=== PATIENT | female | born 1995 | race African-American/Black ===

== ENCOUNTER 2023-05-12 08:46 | Emergency (ER) | payer MEDICAID, SELFPAY ==
[2023-05-12 08:58] VITALS: BP 145/90; PULSE 66; RESP 18; TEMP 36.4; O2SAT 100; BMI 42.1
--- NOTE | 2023-05-12 09:22 | ED_ITS ---
HPI - General Adult General Chief complaint: Upper Respiratory Symptoms Stated complaint: Headache, cough, vomiting Time Seen by Provider: 05/12/23 09:04 Source: patient Mode of arrival: ambulatory Limitations: no limitations History of Present Illness HPI narrative: Patient is 27-year-old female presenting to the emergency department with complaint of cough and headache since yesterday. Reports one episode of v omiting yesterday. Has been able to tolerate PO today. She denies fevers, ear pain, sore throat. Denies any abdominal pain or diarrhea. States daughter is sick with similar symptoms. Has not used any viuj-pen-dnotwmu medications. MD complaint: cough Onset (ago): day(s) Relieving factors: none Exacerbating factors: none Associated symptoms: cough, headaches and nausea/vomiting Treatments prior to arrival: none Related Data Previous Rx's Medication Instructions Recorded benzonatate 100 mg capsule 100 mg PO TID PRN cough #20 caps 05/12/23 Allergies Allergy/AdvReac Type Severity Reaction Status Date / Time No Known Allergies Allergy Verified 05/12/23 08:58 Review of Systems Review of Systems: As per HPI. Yes all other systems are reviewed and are negative Constitutional: Constitutional: Reports as per HPI [facility] Social History Social History Advance Directives: No Physical Exam ED Vital Signs: Vital Signs - 24 hr 05/12/23 08:58 Temperature 97.5 F Pulse Rate 66 Respiratory Rate 18 Blood Pressure 145/90 H Pulse Oximetry 100 Oxygen Delivery Method Room Air BMI result Body Mass Index 42.1 Vital signs have been reviewed and appear to be correct. Blood pressure mildly elevated. Heart rate normal. Respiratory rate normal. Temperature normal. Oxygen saturation normal. Const General: cooperative, healthy appearing and no acute distress Orientation/consciousness: oriented to person, oriented to place, oriented to time and patient oriented x3 Limitations: no limitations HENMT Head: Yes normocephalic and Yes atraumatic Ears: external ears normal, TM's normal bilaterally and EAC's normal General nose exam: Normal external nose present Face and sinus: Yes face symmetric Mouth: oropharynx normal and moist mucous membranes Throat: Yes posterior oropharynx normal, Yes tonsils normal, Yes uvula midline and No uvular edema Eyes Pupils: Equal, round and reactive pupils present Neck Neck: Yes normal visual inspection and Yes supple Resp Effort & Inspection: normal respiratory effort and able to speak in complete sentences Auscultation: clear to auscultation bilaterally Cardio Rate: regular rate Rhythm: regular rhythm Heart sounds: S1 normal heart sound present and S2 normal heart sound present GI Palpation (GI): Soft to palpation and nontender Auscultation: normoactive bowel sounds General: Yes no CVA tenderness Back/Spine/Pelvis Back: no CVA tenderness Skin General skin exam: elasticity normal and turgor normal Neuro General: oriented to person, oriented to place, oriented to time, patient oriented x3, moves all extremities, no focal motor deficits and CN's II-XI intact bilaterally Cranial nerves: Yes Equal, round and reactive pupils present Cognition (Neuro): normal cognition Extrem General: Yes full ROM, Yes no pedal edema and Yes no calf tenderness Psych Mental Status: mental status grossly normal Affect: normal affect Thought process: Normal thought process present Medical Decision Making Medical Decision Making [facility] Narrative: Patient is 27-year-old female presenting to the emergency department with complaint of cough and headache since yesterday. On exam patient is awake, A+Ox3, VS WNL, afebrile, normal neurological exam without focal deficits, physical exam findings as above. Given reported symptoms and physical exam findings, initial differential includes viral illness, COVID, flu. Given symptoms began yesterday do not suspect bronchitis or pneumonia. Swabs for flu and COVID both negative, patient updated on results. Feel symptoms are likely related to viral illness. Will prescribe benzonatate for cough. Advised patient to ensure adequate fluid intake, adequate rest, alternate Tylenol and ibuprofen as needed for headaches. Instructed patient follow-up with primary care provider. Return precautions discussed. Patient verbalized understanding of and agreement with plan. Differential Diagnosis Differential Diagnoses: The differential diagnosis associated with the presentation includes As per MDM. Lab Data [facility] Lab Attestation statement: I reviewed the patient's lab results. As per [facility]. Labs: Lab Results 05/12/23 Range/Units 09:07 COVID-19 (MARY) Negative (Negative) COVID-19 Clin Com See Note Influenza Type A (ANN) Negative (Negative) Influenza Type B (ANN) Negative (Negative) Influenza A & B Note See Note External Record Review External record reviewed: Inpatient record, Office record and Outpatient record Prescription Management I considered prescription management with: Other Discharge Plan Discharge Clinical Impression: Upper respiratory infection Patient Disposition: Home, Self-Care Instructions: Upper Respiratory Infection (DC), Viral Syndrome (ED) Additional Instructions: You were evaluated in the emergency department today for headache and cough. Your Covid and flu tests were negative. Your symptoms are likely related to a viral illness which will resolve on its own with time and rest. You should ensure adequate fluid intake, and can use Tylenol 650 mg or ibuprofen 600 mg every 6 hours as needed for fever or discomfort. You are being prescribed demetra onatate which you can use up to 3 times daily as needed for cough. Please follow-up with your primary care provider this week. Return to the emergency department if you develop chest pain, worsening shortness of breath, difficulty swallowing, fever 100.4? F or greater or any other concerning symptoms. Prescriptions: New benzonatate 100 mg capsule 100 mg PO TID PRN (Reason: cough) Qty: 20 0RF Stand Alone Forms: Work/School Release
[2023-05-12 09:52] LABS: COVID-19 Test Negative (Negative); IDNOW Serial# 08D9AD1C
[2023-05-12 09:53] LABS: IDNOW Serial# BCCEAD1C; Influenza A Negative (Negative); Influenza B2 Negative (Negative)
--- NOTE | 2023-05-12 10:03 | PC.NURSE ---
patient a&ox3, swabs previously obtained, provider to see patient, call fortune within reach, will continue to monitor
[2023-05-12 11:19] VITALS: RESP 16
== END 2023-05-12 11:20 | disposition home or self-care (01) ==
PROVIDERS: Emergency Provider Student in an Organized Health Care Education/Training Program
DX: J06.9 Acute upper respiratory infection, unspecified (principal); R51.9 Headache, unspecified; R05.9 Cough, unspecified; Z11.52 Encounter for screening for COVID-19
CPT/HCPCS: 87502; 87635; 99283; 99284

== ENCOUNTER 2023-08-03 14:05 | Outpatient (REF) | payer MEDICAID, SELFPAY ==
[2023-08-04 11:42] LABS: CT PCR NOT DETECTED (Not Detect.); NG PCR NOT DETECTED (Not Detect.)
[2023-08-04 14:06] LABS: BV Int Neg Control Negative (Negative); BV Int Pos Control Positive (Positive)
== END 2023-08-03 14:06 | disposition home or self-care (01) ==
LOC: HO.LAB 14:05
PROVIDERS: Visit Provider Advanced Practice Midwife
DX: Z01.419 Encounter for gynecological examination (general) (routine) without abnormal findings (principal); N93.9 Abnormal uterine and vaginal bleeding, unspecified; I10 Essential (primary) hypertension; E66.01 Morbid (severe) obesity due to excess calories; Z68.41 Body mass index [BMI] 40.0-44.9, adult; Z20.2 Contact with and (suspected) exposure to infections with a predominantly sexual mode of transmission; Z11.3 Encounter for screening for infections with a predominantly sexual mode of transmission
CPT/HCPCS: 0353U; 87480; 87510; 87660; 88142; 99385

== ENCOUNTER 2023-08-03 14:05 | Outpatient (AMB) | payer MEDICAID, SELFPAY ==
[2023-08-03 14:06] VITALS: BP 122/70; BMI 42.1
--- NOTE | 2023-08-03 14:06 | MHC.OFFVIS ---
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 She said she has had high blood pressure often on since then. She has not been tested for diabetes since the when she tested negative she says both of her parents are diabetic. She has gained weight from being on the [employer] and also life. She works at [employer] she used to eat the food there but no longer. She is sexually active with her partner and she has been open to . She has not been trying to lose weight. She has had times in her life where the bleeding was irregular and she says that at her previous providers in [place] she was checked with an ultrasound and then an endometrial biopsy that said her lining was fine. She has been told before that her weight has something to do with her irregular bleeding this periods started the beginning of July and is just kind of finishing now she took the Nexplanon out because of the weight gain and she was not getting her period at all and also she had no libido now her libido has somewhat improved but she does not get to act on it because of the irregular bleeding as much she last had sex last Tuesday. [facility] Female Reproductive History Menstrual Age of Menarche: 13 Duration of menses: other Date of last menstrual period: 07/08/23 Total pregnancies: 2 Full term: 1 Date of last pap smear: 07/04/21 (per patient''neg'') History of abnormal pap smear: No Physical Exam Vital Signs: Last Vital Signs BP 122/70 08/03/23 14:06 BMI result Body Mass Index 42.1 Const General: healthy appearing, comfortable, no acute distress, well developed and alert Nutritional Appearance: average body habitus and obese Orientation/consciousness: patient oriented x3 Limitations: no limitations HEENT Head: Yes normocephalic Neck Neck: Yes normal visual inspection Thyroid: Thyroid normal Chest Chest palpation & inspection: normal inspection of the chest Breast/axilla inspection: normal inspection of the breasts and normal inspection of the axillae Breast/axilla palpation: normal palpation of the breasts and normal palpation of the axillae Resp Effort & Inspection: normal respiratory effort GI Inspection: Yes normal to inspection, No Abdominal wall edema and No distended Palpation (GI): Soft to palpation and nontender Other: Scant end of menses type blood slight odor noted cervix nulliparous patient tense with exam exam limited by adipose nontender good tone with Kegel. General: Yes bladder normal to palpation External Female Exam: normal external appearance and normal appearance of the urethra Speculum Exam - Vagina: normal appearance of the vagina, normal palpation and normal vaginal discharge Speculum Exam - Cervix: normal appearance of the cervix, normal palpation and nontender Bimanual exam- vagina & uterus: normal bimanual exam, normal palpation, uterine size normal, bladder normal to palpation, consistency normal, normal palpation, uterine mobility normal, uterine shape normal, No Cervical tenderness present, non-tender and no cervical motion tenderness Bimanual Exam- Adnexa, other: normal adnexae, no masses, normal and No adnexal tenderness Neuro General: patient oriented x3 Assessment & Plan Assessment & Plan (1) Encounter for screening examination for sexually transmitted disease: Code(s): Z11.3 - Encounter for screening for infections with a predominantly sexual mode of transmission (2) Women's annual routine gynecological examination: Code(s): Z01.419 - Encounter for gynecological examination (general) (routine) without abnormal findings (3) Abnormal uterine bleeding (AUB): Code(s): N93.9 - Abnormal uterine and vaginal bleeding, unspecified (4) Hypertension: Comment: History of severe preeclampsia has had high blood pressures often on since delivery blood pressure was high at ER visit in May 2023. Code(s): I10 - Essential (primary) hypertension (5) Obesity, morbid, BMI 40.0-49.9: Code(s): E66.01 - Morbid (severe) obesity due to excess calories (6) Family history of diabetes mellitus: Code(s): Z83.3 - Family history of diabetes mellitus Plan -----Discussed in this visit the following: healthy balanced diet, regular and consistent exercise, getting recommended health screens, doing the best she can for her particular health concerns, kegel exercises, pap smear screening and followup recommendations, mammography screening and SBE, normal changes in cycles in her life stage--- . Pap smear was done testing for gonorrhea chlamydia trichomoniasis Gardnerella and yeast was done patient believes she has BV because of the odor offered prescription that she prefers which is the Metrogel with refills that she can use when she is really clear she has symptoms. Will notify her if anything else shows up as well. She wanted testing for blood work for STIs so that testing was offered for HIV hep B hep C and syphilis. Explained that we do not normally test for herpes as most people have been exposed and a positive serologic test does not tell you the site of the infection whether it is oral or genital we only typically test when there has a lesion present. Discussed transmission for safety. She has never had an outbreak she was just curious Discussed her issue of the irregular bleeding that has been going on for some time it is most likely related to the Nexplanon having been in for couple of years but it also could be related to her being overweight and having an irregular bleeding pattern discussed that I would not consider that she would be at high risk for endometrial hyperplasia at this stage of her life because she was on Nexplanon for 2 years and it has been remove for 2 years now so usually that would not occur in that short amount of time however if nothing was done to change the circumstances that are contributing to irregular bleeding for instance her weight, then over time it would not be surprising for her to have issues with that. Discussed the risk Developing these issues and the connection to weight and that losing weight is part of the answer . I did offer her control pills her blood pressure was acceptable today so she could try a course for short 3 months of combination control pills but she would rather be cautious and so I did also offer her progestin only control pills but she would rather work on losing weight and seeing if that makes a difference 1st and have an ultrasound to evaluate the lining of her uterus and we will have a visit after that and she is just going to not take any thing to manage the bleeding at this point in time. She will use condoms for control. I also ordered blood work for STI testing and added in TSH CBC and additionally random blood sugar which will be done fasting and hemoglobin A1c as she is concerned about diabetes and she does not have a PCC. Orders: Orders Hepatitis C Antibody Today Z11.3 - Encounter for screening for infections with a predominantly sexual mode of transmission Syphilis Screen Today Z11.3 - Encounter for screening for infections with a predominantly sexual mode of transmission CT NG by PCR Today Z01.419 - Encounter for gynecological examination (general) (routine) without abnormal findings Pap Smear Today Z01.419 - Encounter for gynecological examination (general) (routine) without abnormal findings Hemoglobin A1c Today E66.01 - Morbid (severe) obesity due to excess calories, I10 - Essential (primary) hypertension, Z83.3 - Family history of diabetes mellitus Glucose Random Today E66.01 - Morbid (severe) obesity due to excess calories, I10 - Essential (primary) hypertension, Z83.3 - Family history of diabetes mellitus Complete Blood Count no Diff Today E66.01 - Morbid (severe) obesity due to excess calories, I10 - Essential (primary) hypertension, Z83.3 - Family history of diabetes mellitus Hepatitis B Surface Antigen Today Z11.3 - Encounter for screening for infections with a predominantly sexual mode of transmission HIV Ab/Ag Today Z11.3 - Encounter for screening for infections with a predominantly sexual mode of transmission Bacterial Vaginosis Panel Today I10 - Essential (primary) hypertension, N93.9 - Abnormal uterine and vaginal bleeding, unspecified, Z01.419 - Encounter for gynecological examination (general) (routine) without abnormal findings, Z11.3 - Encounter for screening for infections with a predominantly sexual mode of transmission, Z20.2 - Contact with and (suspected) exposure to infections with a predominantly sexual mode of transmission US pelvic and transvaginal Today I10 - Essential (primary) hypertension, N93.9 - Abnormal uterine and vaginal bleeding, unspecified, Z01.419 - Encounter for gynecological examination (general) (routine) without abnormal findings, Z11.3 - Encounter for screening for infections with a predominantly sexual mode of transmission Thyroid Stimulating Hormone Today E66.01 - Morbid (severe) obesity due to excess calories, I10 - Essential (primary) hypertension, Z83.3 - Family history of diabetes mellitus Medications: New metronidazole 0.75%(37.5mg/5gram) For use when there is evidence of bacterial vaginosis. 1 appful vaginal BID 5 days 70 grams 2RF Coding Level of Care Code New Pt Prev Care 40-64y(32143) Diagnoses Encounter for screening examination for sexually transmitted disease Z11.3 Women's annual routine gynecological examination Z01.419 Abnormal uterine bleeding (AUB) N93.9 Hypertension I10 Obesity, morbid, BMI 40.0-49.9 E66.01 Family history of diabetes mellitus Z83.3
== END 2023-08-03 15:39 | disposition home or self-care (01) ==
LOC: HO.HWSM 14:06
PROVIDERS: Visit Provider Advanced Practice Midwife
DX: Z11.3 Encounter for screening for infections with a predominantly sexual mode of transmission (principal); Z01.419 Encounter for gynecological examination (general) (routine) without abnormal findings; N93.9 Abnormal uterine and vaginal bleeding, unspecified; I10 Essential (primary) hypertension; E66.01 Morbid (severe) obesity due to excess calories; Z83.3 Family history of diabetes mellitus
CPT/HCPCS: 99385

== ENCOUNTER 2023-08-03 15:58 | Outpatient (REF) | payer MEDICAID, SELFPAY ==
[2023-08-03 17:24] LABS: Hematocrit 35.4 % (37.0-47.0); Hemoglobin 11.9 g/dl (12.0-16.0); Mean Corpuscular HGB Conc 33.6 g/dl (31.0-35.0); Mean Corpuscular Hemoglobin 27.2 pg (27.0-33.0); Platelet Count 228 X10*3/uL (160-400); Red Blood Count 4.37 X10*6/uL (4.20-5.50); Red Cell Distribution Width 15.4 % (11.0-16.0); White Blood Count 8.9 X10*3/uL (4.8-10.8)
[2023-08-03 17:33] LABS: Estimated Average Glucose 108 mg/dL; Hemoglobin A1c % 5.4 % (<6.0)
[2023-08-03 17:34] LABS: Glucose Random 94 mg/dL (60-115)
[2023-08-03 17:55] LABS: Thyroid Stimulating Hormone 4.29 uIU/mL (0.32-4.0)
[2023-08-04 04:03] LABS: Syphilis Screen Nonreactive (Nonreactive)
[2023-08-04 04:30] LABS: HBsAGNum1 0.35 S/CO (0.00-0.99); HIV AB/AG Nonreactive (Nonreactive); HIV Num 1 0.07 S/CO (0.00-0.99); Hepatitis B Surface Antigen Negative (Negative); ~HepC Num1 0.19 S/CO (0.00-0.79); ~Hepatitis C Antibody Nonreactive (Nonreactive)
== END 2023-08-03 15:59 | disposition home or self-care (01) ==
LOC: HO.HHCL 15:58
PROVIDERS: Visit Provider Advanced Practice Midwife
DX: I10 Essential (primary) hypertension (principal); E66.01 Morbid (severe) obesity due to excess calories; Z11.3 Encounter for screening for infections with a predominantly sexual mode of transmission; Z83.3 Family history of diabetes mellitus
CPT/HCPCS: 0353U; 36415; 82947; 83036; 84443; 85027; 86780; 86803; 87340; 87389; 87480; 87510; 87660; 88142; 99385

== ENCOUNTER 2023-08-17 11:57 | Outpatient (AMB) | payer MEDICAID, SELFPAY ==
--- NOTE | 2023-08-17 11:57 | MHC.OFFVIS ---
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 Attempts a been made to referred to primary care. Patient had said she did not have a primary care provider. A referral has been made to [facility] endocrinology as [facility] endocrinology is close to new patients. I wanted patient to know her test results so that she could be sure to do what ever she could do to follow-up in find a primary care provider. She said that she wanted to have the thyroid level done because of a family history. I reviewed the lab results with her and encouraged her to do what ever she can do proactively to herself find a primary care provider she said she is working on it but it is hard as a lot of places have waiting lists I suggested getting on several waiting list so that she can get the soon as possible appointment and establish care for primary care for everything that she needs to follow-up on. We will be having a visit after her ultrasound to review her ultrasound results the ultrasound did not happen as scheduled this week. [facility] Female Reproductive History Menstrual Age of Menarche: 13 control method: none Results Reviewed Results Reviewed: Name: Harjeet Abraham Age/Sex: 27/F : 1995 Unit#: [id number] Attend Dr: Marybeth Alvarez CNM Re08/03/23 Status: DEP REF Location: [facility] Disch: SPEC : [id number] EUGENE: 08/03/23-160 STATUS: COMP REQ : [id number] RECD: 08/03/23-[address] [facility] [address]: Marybeth Alvarez CNM COMP: 08/03/23-175 ENTERED: 08/03/23-[address] [facility] [address]: ORDERED: Glu Random, TSH Test Result Flag Reference Glucose, Random 94 60-115 mg/dL TSH 3rd Gen. 4.29 H 0.32-4.0 uIU/mL Note: A sustained TSH level above 2.5 uIU/mL may warrant further investigation. TSH 3rd Generation ([facility]) Assessment & Plan Assessment & Plan (1) Elevated TSH: Code(s): R79.89 - Other specified abnormal findings of blood chemistry Plan This is a tele visit to review patient's elevated TSH results. Attempts a been made to referred to primary care. Patient had said she did not have a primary care provider. A referral has been made to [facility] endocrinology as [facility] endocrinology is close to new patients. I wanted patient to know her test results so that she could be sure to do what ever she could do to follow-up in find a primary care provider. She said that she wanted to have the thyroid level done because of a family history. I reviewed the lab results with her and encouraged her to do what ever she can do proactively to herself find a primary care provider she said she is working on it but it is hard as a lot of places have waiting lists I suggested getting on several waiting list so that she can get the soon as possible appointment and establish care for primary care for everything that she needs to follow-up on. We will be having a visit after her ultrasound to review her ultrasound results the ultrasound did not happen as scheduled this week. ([facility] [place] [facility] and also to [facility], case management, however nurse navigator referral did not result in any follow-up, and 15-30 minutes of navigating/calling yielded no results.) Telehealth Telehealth Location of provider rendering services: practice address Location of patient: other (work) Patient Identification confirmed using: Name, : Yes Telehealth method: voice only Patient verbally consented to treatment: Yes Patient verbally consented to billing insurance company: Yes Patient informed of any privacy concerns related to visit: Yes Coding Level of Care Code Tele Est Pt Level 3 (18254) Diagnoses Elevated TSH R79.89 Time Spent (min) 20 Comment 15 min spent reviewing & managing hx and plan/5 speaking w pt.
--- OUTSIDE RECORDS SUMMARY | 2023-08-17 11:58 | XMS_ITS | Continuity of Care Document ---
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 Name Role Phone Not on Staff, PCP Primary Care Physician Unavail able Encounter [facility] Date(s): 06/21/19 - 07/01/[address] [address]- [facility] Attending Physician: Roseanne Martin Admitting Physician: Roseanne Martin Referring Physician: Roseanne Martin Allergies, Adverse Reactions, Alerts Substance Reaction Severity Status NKA Active Immunizations Given and Recorded Vaccine Date Status Refusal Reason influenza virus vaccine, inactivated 1 06/13/19 Gi kanika Hepatitis B Vaccine (old term) 06/12/07 Given Hepatitis B Vaccine (old term) 2 96 Given Hepatitis B Vaccine (old term) 3 96 Given Miscellaneous Vaccine 4 07/12/06 Given Measles/Mumps/Rubella Virus Vaccine 5 02/13/02 Giv en Measles/Mumps/Rubella Virus Vaccine 6 11/29/97 Giv en diphtheria/tetanus/pertussis, acel(DTaP) 7 02/13/02 Given diphtheria/tetanus/pertussis, acel(DTaP) 8 11/29/97 Given diphtheria/tetanus/pertussis, acel(DTaP) 9 06/12/97 Given diphtheria/tetanus/pertussis, acel(DTaP) 10 01/10/97 Given diphtheria/tetanus/pertussis, acel(DTaP) 11 96 Given Poliovirus Vaccine, Inactivated 12 05/15/99 Given Poliovirus Vaccine, Inactivated 13 06/12/97 Given Poliovirus Vaccine, Inactivated 14 01/10/97 Given Poliovirus Vaccine, Inactivated 15 96 Given Varicella Virus Vaccine 16 11/29/97 Given Haemophilus B Conj Vaccine (oldterm) 17 11/29/97 G iven Haemophilus B Conj Vaccine (oldterm) 18 06/12/97 G iven Haemophilus B Conj Vaccine (oldterm) 19 06/12/97 G iven Haemophilus B Conj Vaccine (oldterm) 20 01/10/97 G iven Haemophilus B Conj Vaccine (oldterm) 21 96 G iven 1Early/Late Reason: Wean to Standard Admin Times 2Admin Note: HEP B 3Admin Note: HEP B 4Admin Note: GARDASIL VACCINE/ VIS 03/05/06 5Admin Note: MMR 6Admin Note: MMR 7Admin Note: DTap 8Admin Note: DTap 9Admin Note: DTap 10Admin Note: DTap 11Admin Note: DTap 12Admin Note: OPV 13Admin Note: OPV 14Admin Note: OPV 15Admin Note: OPV 16Admin Note: VARIVAX 17Admin Note: HIB 18Admin Note: HIB 19Admin Note: HIB 20Admin Note: HIB 21Admin Note: HIB Medications Colace sodium 100 mg oral capsule 100 mg, 1, capsule, By Mouth, 2 times a day, PRN, # 50 capsule, Refills 0, Tot. Refills 0, Maintenance, for constipation, 06/15/19 11:40:31 EST, Route to Pharmacy Electronically, [id number], [facility]/pharmacy #[id number], 156, cm, 06/14... Start Date: 06/15/19 Stop Date: 06/25/19 Status: Ordered ferrous sulfate 325 mg oral enteric coated tablet 325 mg, 1, tablet, By Mouth, 2 times a day, # 90 tablet, Refills 0, Tot. Refills 0, Maintenance, 05/11/19 15:05:14 EST, Route to Pharmacy Electronically, [id number], [facility]/pharmacy #[id number] Start Date: 05/11/19 Stop Date: 06/10/19 Status: Ordered labetalol 200 mg oral tablet 1 tablet = 200 mg, By Mouth, 2 times a day, # 60 tablet, 0 Refills, Maintenance, 05/21/19 21:16:51 EST, Tablet Start Date: 05/21/19 Status: Ordered Multivitamin Tablet 0 Refills, Maintenance, 01/20/18 11:31:18 EDT Start Date: 01/20/18 Status: Ordered Social History Social History Type Response Smoking Status Current every day aarti ledesma; Type: Cigars; Other: 2 each day...quit 12-30-17; entered on: 01/20/18 Sex
--- OUTSIDE RECORDS SUMMARY | 2023-08-17 11:58 | XMS_ITS | Continuity of Care Document ---
Author Name Unknown Organization [facility] Address [address] [place] [address]- Care Team Providers Care Patent Prosecution Attorney Name Role Phone Not on Staff, PCP Primary Care Physician Unavail able Encounter [facility] NBR [id number] Date(s): 09/10/19 - 09/10/[address] [address]- [facility] Discharge Disposition: A-D/C Home Attending Physician: Beto Ward MD Admitting Physician: Beto Ward MD Referring Physician: Not on Staff, Referring MD Allergies, Adverse Reactions, Alerts Substance Reaction Severity [...] 20Admin Note: HIB 21Admin Note: HIB Medications Zofran ODT 4 mg oral tablet, disintegrating 1 tablet = 4 mg, By Mouth, Every 8 hours, PRN as needed for nausea/vomiting, # 9 tablet, 0 Refills,Maintenance, 09/10/19 9:45:00 EDT, DIS Tablet, [id number], 156, cm, 09/10/19 7:57:00 EDT, Height, 89.5, kg, 09/10/19 7:57:00 EDT, Dry Weight Start Date: 09/10/19 Status: Ordered Vital Signs Most recent to oldest [Reference Range]: 1 2 Height 156 cm (09/10/19 10:19 AM) 156 cm (09/10/19 7:57 AM) Weight 89.5 kg (09/10/19 10:19 AM) 89.5 kg (09/10/19 7:57 AM) Oxygen Saturation [94-100 %] 100 % (09/10/19 10:19 AM) 100 % (09/10/19 7:57 AM) Pulse Rate [55-90 bpm] 97 bpm *H* (09/10/19 10:19 AM) 98 bpm *H* (09/10/19 7:57 AM) Body Mass Index [18.5-24.99] 36.78 *>HHI* (09/10/19 10:19 AM) Blood Pressure [90-138/55-84 mm Hg] 125/ 75mm Hg (09/10/19 10:19 AM) 127/73mm Hg (09/10/19 7:57 AM) Respiratory Rate [16-30 br/min] 16 br/mi n (09/10/19 10:19 AM) 16 br/min (09/10/19 7:57 AM) Mode of Delivery (Oxygen) Room air (09/10/19 10:19 AM) Room air (09/10/19 7:57 AM) Blood pressure sites Arm, right (09/10/19 7:57 AM) Dry Weight 89.5 kg (09/10/19 10:19 AM) 89.5 kg (09/10/19 7:57 AM) Dry Weight Obtained Via Standing scale (09/10/19 7:57 AM) Social History Social History Type Response Smoking Status Current every day aarti ledesma; Type: Cigars; Other: 2 each day...quit 12-30-17; entered on: 01/20/18 Sex
--- OUTSIDE RECORDS SUMMARY | 2023-08-17 11:58 | XMS_ITS | Continuity of Care Document ---
Author Name Unknown Organization [facility] Address [address] [place] [address]- Care Team Providers Care Veterinary Manager Name Role Phone Not on Staff, PCP Primary Care Physician Unavail able [facility]): [facility] - 09/23/19 [facility] [address] [place] [address]- [facility] Attending Physician: Roseanne Martin Admitting Physician: Roseanne Martin Referring Physician: AdmRoseanne davidson Allergies, Adverse Reactions, Alerts Substance Reaction Severity [...] Dry Weight Start Date: 09/10/19 Status: Ordered Social History Social History Type Response Smoking Status Current every day sm oker; Type: Cigars; Other: 2 each day...quit 12-30-17; entered on: 01/20/18 Sex
--- OUTSIDE RECORDS SUMMARY | 2023-08-17 11:59 | XMS_ITS | Continuity of Care Document ---
Author Name Unknown Organization [facility] ter Address [address] [place] [address]- Care Team Providers Care Door To Door Salesperson Name Role Phone Fior Vergara Primary Care Physician [facility] Date(s): 07/08/21 - 07/08/[address] [address]- Discharge Disposition: A-D/C Walkout Attending Physician: Not on Staff, Attending MD Admitting Physician: Not on Staff, Admitting MD Referring Physician: Not on Staff, Referring [...] 15 96 Given Varicella Virus Vaccine 16 5/29/98 Given Haemophilus B Conj Vaccine (oldterm) 17 [...] HIB 20Admin Note: HIB 21Admin Note: HIB Vital Signs Most recent to oldest [Reference Range]: 1 2 3 Oxygen Saturation [94-100 %] 97 % (07/08/21 4:59 PM) 99 % (07/08/21 3:14 PM) 99 % (07/08/21 1:15 PM) Pulse Rate [55-90 bpm] 95 bpm *H* (07/08/21 4:59 PM) 98 bpm *H* (07/08/21 3:14 PM) 92 bpm *H* (07/08/21 1:15 PM) Blood Pressure [90-138/55-84 mm Hg] 126/76mm Hg (07/08/21 4:59 PM) 141/85mm Hg *H* (07/08/21 3:14 PM) Respiratory Rate [16-30 br/min] 16 br/min (07/08/21 3:14 PM) Temperature [96.8-100.4 DegF] 97.6 DegF (07/08/21 4:59 PM) 98.8 DegF (07/08/21 3:14 PM) Mode of Delivery (Oxygen) Room air (07/08/21 4:59 PM) Room air (07/08/21 3:14 PM) Room air (07/08/21 1:15 PM) Blood pressure sites Arm, right (07/08/21 4:59 PM) Arm, right (07/08/21 3:14 PM) Temperature Route Oral (07/08/21 4:59 PM) Oral (07/08/21 3:14 PM) Social History Social History Type Response Smoking Status Current every day sm oker; Type: Cigars; Other: 2 each day...quit 12-30-17; entered on: 01/20/18 Sex
--- OUTSIDE RECORDS SUMMARY | 2023-08-17 11:59 | XMS_ITS | Continuity of Care Document ---
Author Name Unknown Organization [facility] Address [address] [place] [address]- Care Team Providers Care Corporate Webmaster Name Role Phone Fior Vergara Primary Care Physician [phone] [facility]counter [facility] Date(s): 09/23/21 - 12/31/[address] [address] Attending Physician: Not on Staff, Attending MD Referring Physician: Not on Staff, Referring MD Allergies, Adverse Reactions, Alerts No Known Allergies Immunizations Given and Recorded Vaccine Date Status [...] HIB 20Admin Note: HIB 21Admin Note: HIB Social History Social History Type Response Smoking Status Current every day sm oker; Type: Cigars; Other: 2 each day...quit 12-30-17; entered on: 01/20/18 Sex
--- OUTSIDE RECORDS SUMMARY | 2023-08-17 11:59 | XMS_ITS | Continuity of Care Document ---
Author Name Unknown Organization [facility] Address [address] [place] [address]- Care Team Providers Care Frame And Scrap Crusher Name Role Phone Not on Staff, PCP Primary Care Physician Unavail able [facility] Date(s): 06/11/19 - 06/18/[address] [address]- [facility] Encounter Diagnosis Unspecified maternal hypertension, complicating the puerperium(Final) - Discharge Disposition: A-D/C Home Attending Physician: Not on Staff, Attending MD [...] 06/15/19 11:40:31 EST, Route to Pharmacy Electronically, [id number], [facility]/pharmacy #[id number], 156, cm, 06/14... Start Date: 06/15/19 Stop Date: 06/25/19 Status: Ordered ferrous sulfate 325 mg oral enteric coated tablet 325 mg, 1, tablet, By Mouth, 2 times a day, # 90 tablet, Refills 0, Tot. Refills 0, Maintenance, 05/11/19 15:05:14 EST, Route to Pharmacy Electronically, [id number], [facility]/pharmacy #[id number] Start Date: 05/11/19 Stop Date: 06/10/19 Status: Ordered ibuprofen 800 mg oral tablet 800 mg, 1, tablet, By Mouth, 3 times a day, for 10 days, # 30 tablet, Refills 0, Tot. Refills 0, Acute 06/25/19 11:40:28 EST, 06/15/19 11:40:28 EST, Route to Pharmacy Electronically, [id number], [facility]/pharmacy #[id number], 156, cm, 1... Start Date: 06/15/19 Stop Date: 06/25/19 Status: Ordered labetalol 200 mg oral tablet 1 tablet = 200 mg, By Mouth, 2 times a day, # 60 tablet, 0 Refills, Maintenance, 05/21/19 21:16:51 EST, Tablet Start Date: 05/21/19 Status: Ordered Multivitamin Tablet 0 Refills, Maintenance, 01/20/18 11:31:18 EDT Start Date: 01/20/18 Status: Ordered simethicone 125 mg oral tablet 1 tablet = 125 mg, By Mouth, 3 times a day after meals, PRN for gas, for 10 days, # 30 tablet, 0 Refills, Acute 06/25/19 11:40:38 EST, 06/15/19 11:40:38 EST, Tablet, 156, cm, 06/14/19 23:22:29 EST, Height, 88.9, kg, 06/11/19 20:40:17 EST, Dry Weight Start Date: 06/15/19 Stop Date: 06/25/19 Status: Ordered Tylenol 325 mg oral capsule 2 capsule = 650 mg, By Mouth, Every 4 hours, PRN as needed for pain, for 10 days, # 60 capsule, 0 Refills, Acute 06/25/19 11:40:21 EST, 06/15/19 11:40:21 EST, Capsule, 156, cm, 06/14/19 23:22:29 EST,Height, 88.9, kg, 06/11/19 20:40:17 EST, Dry Weight Start Date: 06/15/19 Stop Date: 06/25/19 Status: Ordered Social History Social History Type Response Smoking Status Current every day sm oker; Type: Cigars; Other: 2 each day...quit 06-29-18; entered on: 01/20/18 Sex
--- OUTSIDE RECORDS SUMMARY | 2023-08-17 11:59 | XMS_ITS | Continuity of Care Document ---
Author Name Unknown Organization [facility] Adult Medicine Address [address] [place] [address]- Care Team Providers Care Mud Logger Name Role Phone Not on Staff, PCP Primary Care Physician Unavail able [facility]s): 08/30/19 - 10/13/19 [facility] Adult Medicine [address] [place] [address]- [facility] Attending Physician: Piyush Sigala MD Admitting Physician: Piyush Sigala MD Allergies, Adverse Reactions, Alerts Substance Reaction [...]
--- OUTSIDE RECORDS SUMMARY | 2023-08-17 11:59 | XMS_ITS | Continuity of Care Document ---
Author Name Unknown Organization [facility] ter Address [address] [place] [address]- Care Team Providers Care Drum Tester Name Role Phone Not on Staff, PCP Primary Care Physician Unavail able [facility] Date(s): 06/16/19 - 06/16/[address] [address]- [facility] Discharge Disposition: A-D/C Home Attending Physician: Velma Niño DO Admitting Physician: Velma Niño DO Referring Physician: Velma Niño DO Allergies, Adverse Reactions, Alerts Substance Reaction Severity [...] 06/15/19 11:40:31 EST, Route to Pharmacy Electronically, [id number], [facility]/pharmacy #[id number], 156, cm, 06/14... Start Date: 06/15/19 Stop Date: 06/25/19 Status: Ordered ferrous sulfate 325 mg oral enteric coated tablet 325 mg, 1, tablet, By Mouth, 2 times a day, # 90 tablet, Refills 0, Tot. Refills 0, Maintenance, 05/11/19 15:05:14 EST, Route to Pharmacy Electronically, [id number], [facility]/pharmacy #[id number] Start Date: 05/11/19 Stop Date: 06/10/19 Status: Ordered ibuprofen 800 mg oral tablet 800 mg, 1, tablet, By Mouth, 3 times a day, for 10 days, # 30 tablet, Refills 0, Tot. Refills 0, Acute 06/25/19 11:40:28 EST, 06/15/19 11:40:28 EST, Route to Pharmacy Electronically, [id number], [facility]/pharmacy #[id number], 156, cm, 1... Start Date: 06/15/19 [...] Date: 06/15/19 Stop Date: 06/25/19 Status: Ordered Vital Signs Most recent to oldest [Reference Range]: 1 2 3 Height 155 cm (06/16/19 9:42 AM) Weight 88.6 kg (06/16/19 9:28 AM) Oxygen Saturation [94-100 %] 100 % (06/16/19 9:28 AM) Pulse Rate [55-90 bpm] 84 bpm (06/16/19 9:28 AM) Blood Pressure [90-138/55-84 mm Hg] 141/91mm Hg *H* (06/16/19 2:48 PM) 124/77mm Hg (06/16/19 1:39 PM) 143/94mm Hg *H* (06/16/19 12:39 PM) Respiratory Rate [16-30 br/min] 18 br/min (06/16/19 2:37 PM) 16 br/min (06/16/19 9:28 AM) Temperature [96.8-100.4 DegF] 97.8 DegF (06/16/19 9:28 AM) Mode of Delivery (Oxygen) Room air (06/16/19 9:28 AM) Blood pressure sites Arm, right (06/16/19 1:39 PM) Arm, right (06/16/19 11:29 AM) Arm, right (06/16/19 10:08 AM) Temperature Route Oral (06/16/19 9:28 AM) Weight Obtained Via Standing scale (06/16/19 9:28 AM) Social History Social History Type Response Smoking Status Current every day arati ledesma; Type: Cigars; Other: 2 each day...quit 12-30-17; entered on: 01/20/18 Sex
--- OUTSIDE RECORDS SUMMARY | 2023-08-17 11:59 | XMS_ITS | Continuity of Care Document ---
Author Name Unknown Organization [facility] Address [address] [place] [address]- Care Team Providers Care Preassembler Printed Circuit Board Name Role Phone Fior Vergara Primary Care Physician [facility]s): 08/04/21 - 09/03/21 [facility] [address] [place] [address]- Attending Physician: Roseanne Martin Admitting Physician: Roseanne Martin Referring Physician: Roseanne Martin Allergies, Adverse Reactions, Alerts No Known Allergies [...]
--- OUTSIDE RECORDS SUMMARY | 2023-08-17 11:59 | XMS_ITS | Continuity of Care Document ---
Author Name Unknown Organization [facility] Address [address] [place] [address]- Care Team Providers Care Food Service Team Member Name Role Phone Fior Vergara Primary Care Physician [facility](s): 07/21/21 - 09/03/21 [facility] [address] [place] [address]- Attending Physician: Nas Redd MD Admitting Physician: Nas Redd MD Allergies, Adverse Reactions, Alerts No Known [...]
--- OUTSIDE RECORDS SUMMARY | 2023-08-17 11:59 | XMS_ITS | Continuity of Care Document ---
Author Name Unknown Organization [facility] Address [address] [place] [address]- Care Team Providers Care Emergency Medicine Nurse Practitioner Name Role Phone Fior Vergara Primary Care Physician [phone] Encounter [facility] Date(s): 06/21/20 - 06/21/[address] [address]- Discharge Disposition: A-D/C Home Attending Physician: Paulino Ferris MD Admitting Physician: Paulino Ferris MD Referring Physician: Not on Staff, Referring [...] 20Admin Note: HIB 21Admin Note: HIB Medications penicillin V potassium 500 mg oral tablet 1 tablet = 500 mg, By Mouth, 4 times a day, for 10 days, # 40 tablet, 0 Refills, Acute 07/01/20 17:13:00 EST, 06/21/20 17:13:00 EST, [facility]/pharmacy #[id number], Partial fill upon patient request if the prescription is for a schedule II opioid drug., 158, cm,... Start Date: 06/21/20 Stop Date: 07/01/20 Status: Ordered Vital Signs Most recent to oldest [Reference Range]: 1 Height 158 cm (06/21/20 5:01 PM) Weight 99.1 kg (06/21/20 5:01 PM) Oxygen Saturation [94-100 %] 100 % (06/21/20 5:01 PM) Pulse Rate [55-90 bpm] 70 bpm (06/21/20 5:01 PM) Blood Pressure [90-138/55-84 mm Hg] 129/ 84mm Hg (06/21/20 5:01 PM) Respiratory Rate [16-30 br/min] 16 br/mi n (06/21/20 5:01 PM) Temperature [96.8-100.4 DegF] 97.3 DegF (06/21/20 5:01 PM) Mode of Delivery (Oxygen) Room air (06/21/20 5:01 PM) Blood pressure sites Arm, left (06/21/20 5:01 PM) Temperature Route Temporal (06/21/20 5:01 PM) Dry Weight 99.1 kg (06/21/20 5:01 PM) Weight Obtained Via Standing scale (06/21/20 5:01 PM) Dry Weight Obtained Via Standing scale (06/21/20 5:01 PM) Social History Social History Type Response Smoking Status Current every day aarti ledesma; Type: Cigars; Other: 2 each day...quit 12-30-17; entered on: 01/20/18 Sex
--- OUTSIDE RECORDS SUMMARY | 2023-08-17 11:59 | XMS_ITS | Continuity of Care Document ---
Author Name Unknown Organization [facility] ter Address [address] [place] [address]- Care Team Providers Care J2Ee Java Developer Name Role Phone Not on Staff, PCP Primary Care Physician Unavail able [facility] Date(s): 06/08/19 - 07/11/[address] [address]- [facility] Attending Physician: Maryann Pat MD Admitting Physician: Maryann Pat MD Referring Physician: Maryann Pat MD Allergies, Adverse Reactions, Alerts Substance Reaction [...] 06/15/19 11:40:31 EST, Route to Pharmacy Electronically, [id number], [facility]/pharmacy #[id number], 156, cm, 06/14... Start Date: 06/15/19 Stop Date: 06/25/19 Status: Ordered ferrous sulfate 325 mg oral enteric coated tablet 325 mg, 1, tablet, By Mouth, 2 times a day, # 90 tablet, Refills 0, Tot. Refills 0, Maintenance, 05/11/19 15:05:14 EST, Route to Pharmacy Electronically, [id number], [facility]/pharmacy #[id number] Start Date: 05/11/19 Stop Date: 06/10/19 [...]
--- OUTSIDE RECORDS SUMMARY | 2023-08-17 11:59 | XMS_ITS | Continuity of Care Document ---
Author Name Unknown Organization [facility] ter Address [address] [place] [address]- Care Team Providers Care Press Washer Name Role Phone Not on Staff, PCP Primary Care Physician Unavail able [facility] Date(s): 06/11/19 - 06/15/[address] [address]- [facility] Discharge Disposition: A-D/C Home Attending Physician: Deshaun Mckoy MD Admitting Physician: Deshaun Mckoy MD Referring Physician: Deshaun Mckoy MD Allergies, Adverse Reactions, Alerts Substance Reaction [...] 06/15/19 11:40:31 EST, Route to Pharmacy Electronically, [id number], [facility]/pharmacy #[id number], 156, cm, 06/14... Start Date: 06/15/19 Stop Date: 06/25/19 Status: Ordered ferrous sulfate 325 mg oral enteric coated tablet 325 mg, 1, tablet, By Mouth, 2 times a day, # 90 tablet, Refills 0, Tot. Refills 0, Maintenance, 05/11/19 15:05:14 EST, Route to Pharmacy Electronically, [id number], [facility]/pharmacy #[id number] Start Date: 05/11/19 Stop Date: 06/10/19 Status: Ordered ibuprofen 800 mg oral tablet 800 mg, 1, tablet, By Mouth, 3 times a day, for 10 days, # 30 tablet, Refills 0, Tot. Refills 0, Acute 06/25/19 11:40:28 EST, 06/15/19 11:40:28 EST, Route to Pharmacy Electronically, [id number], [facility]/pharmacy #[id number], 156, cm, 1... Start Date: 06/15/19 [...] Date: 06/15/19 Stop Date: 06/25/19 Status: Ordered Procedures Procedure Date Related Diagnosis Body Site Status delivery only; 06/12/19 C ompleted Vital Signs Most recent to oldest [Reference Range]: 1 2 3 4 Height 156 cm (06/14/19 11:22 PM) 156 cm (06/14/19 4:00 PM) 156 cm (06/14/19 9:55 AM) Weight 88.9 kg (06/11/19 8:40 PM) Oxygen Saturation [94-100 %] 98 % (06/14/19 11:22 PM) 99 % (06/14/19 4:00 PM) 99 % (06/14/19 8:00 AM) Pulse Rate [55-90 bpm] 72 bpm (06/15/19 10:39 AM) 75 bpm (06/15/19 9:57 AM) 82 bpm (06/14/19 11:22 PM) Body Mass Index [18.5-24.99] 36.53 *>HHI* (06/11/19 8:40 PM) Blood Pressure [90-138/55-84 mm Hg] 136/93mm Hg (06/15/19 10:39 AM) 151/96mm Hg *H* (06/15/19 9:57 AM) 135/87mm Hg (06/14/19 11:22 PM) Respiratory Rate [16-30 br/min] 18 br/min (06/15/19 3:10 AM) 20 br/min (06/14/19 11:22 PM) 18 br/min (06/14/19 11:06 PM) 18 br/min (06/14/19 11:06 PM) Temperature [96.8-100.4 DegF] 98.6 DegF (06/14/19 11:22 PM) 98.1 DegF (06/14/19 4:00 PM) 97.7 DegF (06/14/19 8:00 AM) Mode of Delivery (Oxygen) Room air (06/14/19 11:22 PM) Room air (06/14/19 4:00 PM) Room air (06/14/19 8:00 AM) Blood pressure sites Arm, right (06/14/19 4:00 PM) Arm, right (06/14/19 8:00 AM) Arm, right (06/13/19 8:54 PM) Temperature Route Axillary (06/14/19 11:22 PM) Oral (06/14/19 4:00 PM) Oral (06/14/19 8:00 AM) Dry Weight 88.9 kg (06/11/19 8:40 PM) Sensory deficits None (06/11/19 8:40 PM) Mobility assistance Independent (06/11/19 8:40 PM) Social History Social History Type Response Smoking Status Current every day sm callie; Type: Cigars; Other: 2 each day...quit 12-30-17; entered on: 01/20/18 Sex
== END 2023-08-17 15:57 | disposition home or self-care (01) ==
LOC: HO.HWSM 11:57
PROVIDERS: Visit Provider Advanced Practice Midwife
DX: R79.89 Other specified abnormal findings of blood chemistry (principal)
CPT/HCPCS: 99213

== ENCOUNTER → 2023-08-17 11:57 | Outpatient (BNVA) | payer MEDICAID, SELFPAY | PROVIDERS: Visit Provider Advanced Practice Midwife ==

== ENCOUNTER 2023-09-26 12:48 | Outpatient (REF) | payer OTHER, SELFPAY ==
[2023-09-27 04:20] LABS: Syphilis Screen Nonreactive (Nonreactive)
[2023-09-27 04:42] LABS: HBsAGNum1 0.31 S/CO (0.00-0.99); HIV AB/AG Nonreactive (Nonreactive); HIV Num 1 0.06 S/CO (0.00-0.99); Hepatitis B Surface Antigen Negative (Negative); ~HepC Num1 0.19 S/CO (0.00-0.79); ~Hepatitis C Antibody Nonreactive (Nonreactive)
== END 2023-09-26 12:49 | disposition home or self-care (01) ==
LOC: HO.HHCL 12:48
PROVIDERS: Visit Provider Advanced Practice Midwife
DX: R79.89 Other specified abnormal findings of blood chemistry (principal); E66.01 Morbid (severe) obesity due to excess calories; I10 Essential (primary) hypertension; N93.9 Abnormal uterine and vaginal bleeding, unspecified; Z20.2 Contact with and (suspected) exposure to infections with a predominantly sexual mode of transmission; Z12.4 Encounter for screening for malignant neoplasm of cervix
CPT/HCPCS: 36415; 86780; 86803; 87340; 87389; 99212

== ENCOUNTER 2023-09-26 13:08 | Outpatient (AMB) | payer OTHER, SELFPAY ==
--- NOTE | 2023-09-26 13:09 | MHC.OFFVIS ---
Intake Vital Signs 09/26/23 13:10 Height 5 ft 2 in Weight 225 lb BMI 41.1 BP 106/66 Intake Visit Reasons: STD Testing Intake Note: Std testing Staffing Coordinator Required: No Information Interpreted: non-clinical & clinical Cement Boat And Barge Loader: Cement Boat And Barge Loader Present Allergies No Known Allergies Allergy (Verified 09/26/23 13:12) Medication List - Last Reconciled 09/26/23 by Marybeth Alvarez CNM No Known Home Meds Is last menstrual period known: Yes Last menstrual period: 09/16/23 Post menopausal: No HPI STD Testing HPI Details Patient is here for STD testing 2 weekends ago she had an unsafe exposure. She went downstairs just before this visit and got testing for HIV hep B hep C and syphilis that was ordered at the August visit. She has been looking for a primary care provider because of an elevated TSH and all of the practices have waiting lists she may have to change her insurance in order to qualify and she has been told through [employer] that she may have to be seen at the [facility] and they are 2 sites in [place] so she is totally on the job as regards her healthcare. She has her ultrasound appointment that was ordered also in August scheduled for this week because she had to reschedule it once. She has lost 5 lb but she thinks it might be the scale. She is doing her best. She thinks that her periods have come back to normal to her last period was the 15th of this month and the period The last month was normal too, [facility] Female Reproductive History Menstrual Age of Menarche: 13 Duration of menses: 6-7 days Date of last menstrual period: 09/16/23 control method: none Total pregnancies: 2 Full term: 1 Number of Living Children: 1 Ab induced: 1 Date of last pap smear: 08/04/23 (negative) Physical Exam Vital Signs: Last Vital Signs BP 106/66 09/26/23 13:10 BMI result Body Mass Index 41.1 Other: Normal external exam introitus within normal limits with no lesions scant normal appearing whitish mucus patient was clenching tightly closed and would not permit the speculum to enter creamy white discharge noted at end of speculum. Again unable to open speculum sufficient enough to visualize cervix because of vaginal clenching. Swabs taken of white discharge in vagina. Sending for gonorrhea chlamydia trichomoniasis Gardnerella and Francoise Education done around all of these. Results Reviewed Results Reviewed: Though it could not be found on her portal the chlamydia was negative from 08/03/2023 in diagnostic testings on the computer. Assessment & Plan Assessment & Plan (1) Cervical cancer screening: Comment: 08/03/2023 Pap is negative. Code(s): Z12.4 - Encounter for screening for malignant neoplasm of cervix (2) Elevated TSH: Code(s): R79.89 - Other specified abnormal findings of blood chemistry (3) Obesity, morbid, BMI 40.0-49.9: Code(s): E66.01 - Morbid (severe) obesity due to excess calories (4) Hypertension: Comment: History of severe preeclampsia has had high blood pressures often on since delivery blood pressure was high at ER visit in May 2023. 09/26/2023 normotensive. Code(s): I10 - Essential (primary) hypertension (5) Abnormal uterine bleeding (AUB): Code(s): N93.9 - Abnormal uterine and vaginal bleeding, unspecified (6) Encounter for screening examination for sexually transmitted disease: Code(s): Z11.3 - Encounter for screening for infections with a predominantly sexual mode of transmission Plan Normal external exam introitus within normal limits with no lesions scant normal appearing whitish mucus patient was clenching tightly closed and would not permit the speculum to enter creamy white discharge noted at end of speculum. Again unable to open speculum sufficient enough to visualize cervix because of vaginal clenching. Swabs taken of white discharge in vagina. Sending for gonorrhea chlamydia trichomoniasis Gardnerella and Francoise Education done around all of these. Also helped her in finding her portal information. And reviewed labs that had been done previously she was correct in noting that it was not possible to find chlamydia done from 08/24/2023 on her portal. I also reviewed her TSH with her and possible management consideration and plans told her to expect that they may want to repeat the TSH when she arrives at a primary care provider but that eventually they will probably place her on a medication to take once a day in the morning same time every day. Also reviewed that it often really does not affect weight that much. We will have a visit after her ultrasound. Congratulated on her weight loss and discussed the connections between obesity and irregular periods. Orders: Orders Bacterial Vaginosis Panel Today Z20.2 - Contact with and (suspected) exposure to infections with a predominantly sexual mode of transmission CT NG by PCR Today Z20.2 - Contact with and (suspected) exposure to infections with a predominantly sexual mode of transmission Coding Level of Care Code Est Pt Level 3 (15512) Diagnoses Cervical cancer screening Z12.4 Elevated TSH R79.89 Obesity, morbid, BMI 40.0-49.9 E66.01 Hypertension I10 Abnormal uterine bleeding (AUB) N93.9 Encounter for screening examination for sexually transmitted disease Z11.3
[2023-09-26 13:10] VITALS: BP 106/66; BMI 41.1
== END 2023-09-26 14:06 | disposition home or self-care (01) ==
LOC: HO.HWSM 13:08
PROVIDERS: Visit Provider Advanced Practice Midwife
DX: Z12.4 Encounter for screening for malignant neoplasm of cervix (principal); R79.89 Other specified abnormal findings of blood chemistry; E66.01 Morbid (severe) obesity due to excess calories; I10 Essential (primary) hypertension; N93.9 Abnormal uterine and vaginal bleeding, unspecified; Z11.3 Encounter for screening for infections with a predominantly sexual mode of transmission
CPT/HCPCS: 99213

== ENCOUNTER 2023-09-26 14:08 | Outpatient (REF) | payer OTHER, SELFPAY ==
[2023-09-27 07:11] LABS: CT PCR NOT DETECTED (Not Detect.); NG PCR NOT DETECTED (Not Detect.)
[2023-09-27 11:57] LABS: BV Int Neg Control Negative (Negative); BV Int Pos Control Positive (Positive)
== END 2023-09-26 14:09 | disposition home or self-care (01) ==
LOC: HO.LNP 14:08
PROVIDERS: Visit Provider Advanced Practice Midwife
DX: Z20.2 Contact with and (suspected) exposure to infections with a predominantly sexual mode of transmission (principal)
CPT/HCPCS: 0353U; 87480; 87510; 87660

== ENCOUNTER 2023-12-16 11:11 | Outpatient (REF) | payer OTHER, SELFPAY ==
[2023-12-16 18:11] LABS: Bacterial Vaginosis PCR POSITIVE (Negative); Candida Group PCR NOT DETECTED (Not Detect); Candida glab krusei PCR NOT DETECTED (Not Detect); Trichomonas vaginalis PCR NOT DETECTED (Not Detect)
== END 2023-12-16 11:12 | disposition home or self-care (01) ==
LOC: HO.LAB 11:11
PROVIDERS: Visit Provider Advanced Practice Midwife
DX: Z32.02 Encounter for pregnancy test, result negative (principal); N89.8 Other specified noninflammatory disorders of vagina; R35.0 Frequency of micturition
CPT/HCPCS: 0352U; 81025; 99212

== ENCOUNTER 2023-12-16 11:11 | Outpatient (AMB) | payer OTHER, SELFPAY ==
[2023-12-16 11:14] VITALS: BP 118/74; BMI 41.1
--- NOTE | 2023-12-16 11:14 | MHC.OFFVIS ---
Vital Signs 12/16/23 11:14 Height 5 ft 2 in Weight 225 lb BMI 41.1 BP 118/74 Intake Visit Reasons: ? infection Gardening Instructor Required: No Information Interpreted: clinical only Mechanical Engineering Technician: Mechanical Engineering Technician Present Allergies No Known Allergies Allergy (Verified 12/16/23 11:15) Medication List - Last Reconciled 12/16/23 by Marybeth Alvarez CNM metronidazole 0.75%(37.5mg/5gram) 1 appful vaginal BEDTIME 5 days Is last menstrual period known: Yes Last menstrual period: 11/05/23 HPI HPI ? infection: Details: She is not here for question BV. she thinks she might have UTI, and she wants to find out if she could be because her period is late, she had it on the 05 of October, 04 of November and no period yet in December. She is actually trying to get .she says she has not found a primary care provider because she has given up because there were waiting lists everywhere. She knows and acknowledges that she was told that she does need to find primary care provider because of her elevated TSH. Patient has a history of with complications and a . I did remind her that if she did get she would not be able to come to us for care, because of her history of complications and her . she would need to return to [facility] to get all her care. She is suspecting she might have a UTI, although she has never had a UTI, she says she is urinating frequently and it has been for the last 2 days and she also has pain on her right and left side and that has been for the last 2 days as well she says the pain is there more when she eats she denies any constipation she denies any burning with urination she denies any pain central in her abdomen or pelvic area. She last had sex about a week ago. [facility] Medical History (Updated 12/16/23 @ 11:48 by Marybeth Alvarez CNM) Elevated TSH Hypertension Surgical History (Updated 12/16/23 @ 11:47 by Marybeth Alvarez CNM) Previous section Social History (Updated 12/16/23 @ 11:17 by Kacy George [facility]) Alcohol intake: current Alcohol intake frequency: a few times a month Patient Tobacco Use Status: Current everyday Tobacco user Tobacco use type: Cigarette Substance Use Type: Marijuana Female Reproductive History Menstrual Age of Menarche: 13 Duration of menses: 3-5 days Date of last menstrual period: 11/05/23 Total pregnancies: 2 Full term: 1 Date of last pap smear: 08/04/23 (negative) History of abnormal pap smear: No Physical Exam Vital Signs: Last Vital Signs BP 118/74 12/16/23 11:14 BMI result Body Mass Index 41.1 Other: Adipose tissue patient not very tender abdominally though patient does complain of discomfort in her right and left lower abdominal areas. External Female Exam: normal external appearance Speculum Exam - Vagina: normal appearance of the vagina and normal vaginal discharge Speculum Exam - Cervix: normal appearance of the cervix Bimanual exam- vagina & uterus: normal bimanual exam, uterine size normal, consistency normal, uterine mobility normal, uterine shape normal and non-tender Bimanual Exam- Adnexa, other: normal adnexae, no masses and No adnexal tenderness Results AMB Test Urine AMB Test Urine Negative Last Edit by Kacy George CMA on 12/16/23 11:31 Results Reviewed Results Reviewed: test is negative today. Assessment & Plan Assessment & Plan (1) Obesity, morbid, BMI 40.0-49.9: Code(s): E66.01 - Morbid (severe) obesity due to excess calories Category: Medical (2) Late menses: Code(s): N92.6 - Irregular menstruation, unspecified Category: Medical (3) Elevated TSH: Code(s): R79.89 - Other specified abnormal findings of blood chemistry Category: Medical (4) Hypertension: Comment: History of severe preeclampsia has had high blood pressures often on since delivery blood pressure was high at ER visit in May 2023. 09/26/2023 normotensive. Code(s): I10 - Essential (primary) hypertension Category: Medical (5) Encounter for screening examination for sexually transmitted disease: Code(s): Z11.3 - Encounter for screening for infections with a predominantly sexual mode of transmission Category: Medical (6) Previous section: Code(s): Z98.891 - History of uterine scar from previous surgery Category: Surgical Plan . Reviewed that normally urinary tract infections are assessed and treated with primary care she has just urinated now for the test so she would not be able to pee again soon I am giving the patient water so that she will be able to go downstairs to the lab after she leaves here and submit clean-catch urine to check for urinary tract infection her symptoms do not necessarily charanjit with that but we will check it out because she is suspicious that she has 1. She has on the portal but she can also call on Tuesday or Tuesday to find out about the urinary results. We will definitely contact her for anything positive after the final culture is develops but not until then. Testing done for STIs her cervix appears nulliparous pink smooth clear with very healthy appearing fertile mucus. I did have the patient look at her cervix to show her it is possible that pain she is having left and right sides could be from ovulation. She has her annual exam next year. Discussed that if she did want to get this would be good time in terms of ovulation though I encouraged her to continue on weight loss and she does need to get her thyroid seen to and I would encourage that 1st and also that it would be good to take a multivitamin every day. I also reviewed that because of her history of severe preeclampsia and the history of the she would need to get her care can start to finish at [facility] where she went before. She is lives in [place] now but she brings her 4-year-old to Pediatrics at [address] [place] [address] in [place]. Orders: Orders AMB HCG Urine Test Today Z32.02 - Encounter for test, result negative CT NG by PCR Today N89.8 - Other specified noninflammatory disorders of vagina, R35.0 - Frequency of micturition UA CC w/rflx Micro + Cult Today R35.0 - Frequency of micturition Bacterial Vaginosis Panel Today N89.8 - Other specified noninflammatory disorders of vagina, R35.0 - Frequency of micturition Coding Level of Care Code Est Pt Level 3 (72116) Diagnoses Obesity, morbid, BMI 40.0-49.9 E66.01 Late menses N92.6 Elevated TSH R79.89 Hypertension I10 Encounter for screening examination for sexually transmitted disease Z11.3 Previous section Z98.891
== END 2023-12-16 11:42 | disposition home or self-care (01) ==
LOC: HO.HWSM 11:11
PROVIDERS: Visit Provider Advanced Practice Midwife
DX: E66.01 Morbid (severe) obesity due to excess calories (principal); N92.6 Irregular menstruation, unspecified; R79.89 Other specified abnormal findings of blood chemistry; I10 Essential (primary) hypertension; Z11.3 Encounter for screening for infections with a predominantly sexual mode of transmission; Z98.891 History of uterine scar from previous surgery; Z32.02 Encounter for pregnancy test, result negative
CPT/HCPCS: 99213

== ENCOUNTER 2023-12-16 11:52 | Outpatient (REF) | payer OTHER, SELFPAY ==
[2023-12-16 13:20] LABS: Appearance Urine Cloudy; Color Urine Yellow; Glucose Urine UA Negative (Negative); Leukocyte Esterase Urine Trace (Negative); Nitrite Urine Negative (Negative); PH 5.5 (5.0-9.0); Specific Gravity - Urine 1.015 (1.005-1.025); UMIC TRIGGER UACC YES; Urine Blood Negative (Negative); Urine Ketones Negative (Negative); Urine Protein Negative (Neg-Trace)
[2023-12-16 13:24] LABS: Bacteria Urine None Seen (None Seen); Hyaline Casts Urine 0-2 /LPF (0-2); RBC Urine 0-2 /HPF (0-2); WBC Urine 0-5 /HPF (0-5)
[2023-12-16 14:47] LABS: CT PCR NOT DETECTED (Not Detect.); NG PCR NOT DETECTED (Not Detect.)
== END 2023-12-16 11:53 | disposition home or self-care (01) ==
LOC: HO.HHCL 11:52
PROVIDERS: Visit Provider Advanced Practice Midwife
DX: R35.0 Frequency of micturition (principal); N89.8 Other specified noninflammatory disorders of vagina
CPT/HCPCS: 0353U; 81001

== ENCOUNTER 2024-06-13 13:01 | Outpatient (AMB) | payer MEDICAID, SELFPAY ==
[2024-06-13 13:18] VITALS: BP 116/76; BMI 41.1
--- NOTE | 2024-06-13 13:18 | A.OFFVIS_ITS ---
Vital Signs 06/13/24 13:18 Height 5 ft 2 in Weight 225 lb BMI 41.1 BP 116/76 Intake Visit Reasons: Amenorrhea Allergies No Known Allergies Allergy (Verified 06/13/24 13:22) Is last menstrual period known: Yes Last menstrual period: 11/26/23 HPI Comments Details: Patient is here today with concerns that she has not had a period since November. History of delivery 5 years ago with Nexplanon inserted for 3 years after removal she had irregular bleeding and was seen by 2 other char belt operator department and was treated with intermittent hormones unclear if it was OCPs or progesterone alone. She reports prior to she had normal menstrual cycles. She denies any symptoms of hirsutism. Attempting to lose weight. TSH was drawn July of 2023-.29, she had been trying to get into primary care is on the wait list at [facility]. Last sexually active 2 months ago, UPT is negative today. She admits to having vaginal discharge and odor today and is prone to bacterial vaginosis. She denies any pelvic pain or urinary symptoms today. [facility] Medical History Amenorrhea Elevated TSH Hypertension Surgical History Previous section Social History Alcohol intake: current Alcohol intake frequency: a few times a month Patient Tobacco Use Status: Current everyday Tobacco user Tobacco use type: Cigarette Substance Use Type: Marijuana Female Reproductive History Menstrual Age of Menarche: 13 Date of last menstrual period: 11/26/23 Review of Systems Const All systems reviewed & are unremarkable except as noted in HPI and below Physical Exam Vital Signs: Last Vital Signs BP 116/76 06/13/24 13:18 BMI result Body Mass Index 41.1 Const General: cooperative, healthy appearing and no acute distress Orientation/consciousness: patient oriented x3 GI Inspection: Yes normal to inspection Palpation (GI): Soft to palpation and Other GI palpation findings present (Nontender) Rectal Exam - Female: visual inspection normal General: Yes bladder normal to palpation External Female Exam: normal appearance of the urethra Speculum Exam - Vagina: normal appearance of the vagina, normal palpation and normal vaginal discharge Speculum Exam - Cervix: normal appearance of the cervix and normal palpation Bimanual exam- vagina & uterus: normal bimanual exam, normal palpation, uterine size normal, bladder normal to palpation, normal palpation, uterine shape normal and non-tender Bimanual Exam- Adnexa, other: normal adnexae Neuro General: patient oriented x3 Results AMB Test Urine AMB Test Urine Negative Last Edit by ANITA Vargas on 06/13/24 13:35 Results Reviewed Results Reviewed: Laboratory Last Values Tst Clinic Negative 06/13/24 13:35 Assessment & Plan Assessment & Plan (1) Amenorrhea: Code(s): N91.2 - Amenorrhea, unspecified Category: Medical (2) Vaginal discharge: Code(s): N89.8 - Other specified noninflammatory disorders of vagina Plan Discussed: Obtaining pelvic ultrasound, lab work, refer to a PCP specialist for thyroid dysfunction, initiate Aygestin, advised no unprotected intimacy. BV and GC chlamydia obtained today. international logistics manager to research a primary care within our organization for access to care. Return to the office pending results. The patient expressed understanding and agreement with the plan of care. All of her questions and concerns were addressed to the best of my ability. This note is constructed using voice recognition software. While every effort has been made to ensure accuracy, station captain errors may have been included. Orders: Orders Testosterone, Free/Total Today N91.2 - Amenorrhea, unspecified Bacterial Vaginosis Panel Today N89.8 - Other specified noninflammatory disorders of vagina AMB HCG Urine Test Today Z32.02 - Encounter for test, result negative Prolactin Today N91.2 - Amenorrhea, unspecified Thyroid Stimulating Hormone Today N91.2 - Amenorrhea, unspecified 17 Hydroxyprogesterone Today N91.2 - Amenorrhea, unspecified Follicle Stimulating Hormone Today N91.2 - Amenorrhea, unspecified Estradiol Ultra Sensitive Today N91.2 - Amenorrhea, unspecified US pelvic and transvaginal Today N91.2 - Amenorrhea, unspecified CT NG by PCR Today N89.8 - Other specified noninflammatory disorders of vagina Medications: New norethindrone acetate 5 mg PO DAILY 10 days 10 tabs 0RF Coding Level of Care Code Est Pt Level 4 (98878) Diagnoses Amenorrhea N91.2 Vaginal discharge N89.8
== END 2024-06-13 14:08 | disposition home or self-care (01) ==
PROVIDERS: Visit Provider Advanced Practice Midwife
DX: N91.2 Amenorrhea, unspecified (principal); N89.8 Other specified noninflammatory disorders of vagina; Z32.02 Encounter for pregnancy test, result negative
CPT/HCPCS: 99214

== ENCOUNTER 2024-06-13 13:01 | Outpatient (REF) | payer MEDICAID, SELFPAY ==
[2024-06-14 02:30] LABS: CT PCR NOT DETECTED (Not Detect.); NG PCR NOT DETECTED (Not Detect.)
[2024-06-14 08:55] LABS: Bacterial Vaginosis PCR POSITIVE (Negative); Candida Group PCR NOT DETECTED (Not Detect); Candida glab krusei PCR NOT DETECTED (Not Detect); Trichomonas vaginalis PCR NOT DETECTED (Not Detect)
== END 2024-06-13 13:02 | disposition home or self-care (01) ==
LOC: HO.LAB 13:01
PROVIDERS: Visit Provider Advanced Practice Midwife
DX: N89.8 Other specified noninflammatory disorders of vagina (principal); N91.2 Amenorrhea, unspecified
CPT/HCPCS: 0352U; 81025; 87491; 87591; 99212; 99459

== ENCOUNTER 2024-06-13 14:09 | Outpatient (REF) | payer MEDICAID, SELFPAY | END 2024-06-13 14:10 | disposition home or self-care (01) | LOC: HO.LNP 14:09 | PROVIDERS: Visit Provider Advanced Practice Midwife | DX: Z13.89 Encounter for screening for other disorder (principal) ==

== ENCOUNTER 2024-10-09 10:07 | Emergency (ER) | payer OTHER, SELFPAY ==
[2024-10-09 10:20] VITALS: BP 133/84; PULSE 69; RESP 19; TEMP 36.6; O2SAT 99; BMI 38.4
--- NOTE | 2024-10-09 10:21 | ED.GENADULT ---
HPI - General Adult General Chief complaint: Wound/Laceration Stated complaint: R finger lac Time Seen by Provider: 10/09/24 12:15 Source: patient, RN notes reviewed and old records reviewed Mode of arrival: ambulatory Limitations: no limitations History of Present Illness ED Provider: Malachi [facility] narrative: Patient is a 29-year-old right hand dominant female presenting with laceration to right index finger which occurred around 7pm last night. Cut accidentally with kitchen knife. Unknown last Tdap. Denies numbness/tingling. MD complaint: finger laceration Onset (ago): hour(s) Related Data Home Medications ?Medication ?Instructions ?Recorded ?Confirmed clindamycin HCl 300 mg capsule 300 mg PO BID 06/13/24 Previous Rx's ?Medication ?Instructions ?Recorded norethindrone acetate 5 mg tablet 5 mg PO DAILY 10 days #10 tabs 06/13/24 metronidazole 0.75 % (37.5 mg/5 1 appful vaginal BEDTIME 5 days 06/14/24 gram) vaginal gel #70 grams Allergies Allergy/AdvReac Type Severity Reaction Status Date / Time No Known Allergies Allergy Verified 10/09/24 10:21 Review of Systems Review of Systems: As per HPI Yes all other systems are reviewed and are negative Constitutional: Constitutional: Reports as per HPI PMFSH Past Medical History Medical History Amenorrhea Elevated TSH Hypertension Surgical History Previous section Social History Social History Alcohol intake: current Alcohol intake frequency: a few times a month Patient Tobacco Use Status: Current everyday Tobacco user Tobacco use type: Cigarette Substance Use Type: Marijuana Do you have a plan to hurt others: No Plan Physical Exam ED Vital Signs: Vital Signs - 24 hr 10/09/24 10:20 Temperature 98 F Pulse Rate 69 Respiratory Rate 19 Blood Pressure 133/84 Pulse Oximetry 99 Oxygen Delivery Method Room Air BMI result Body Mass Index 38.4 Vital signs have been reviewed and appear to be correct. Blood pressure normal. Heart rate normal. Respiratory rate normal. Temperature normal. Oxygen saturation normal. Const General: cooperative, healthy appearing and no acute distress Orientation/consciousness: oriented to person, oriented to place, oriented to time and patient oriented x3 Limitations: no limitations HENMT Head: Yes normocephalic and Yes atraumatic Ears: external ears normal General nose exam: Normal external nose present Face and sinus: Yes face symmetric Mouth: oropharynx normal and moist mucous membranes Throat: Yes uvula midline Eyes Pupils: Equal, round and reactive pupils present Neck Neck: Yes normal visual inspection and Yes supple Resp Effort & Inspection: normal respiratory effort and able to speak in complete sentences Auscultation: clear to auscultation bilaterally Cardio Rate: regular rate Rhythm: regular rhythm Heart sounds: S1 normal heart sound present and S2 normal heart sound present GI Palpation (GI): Soft to palpation and nontender Auscultation: normoactive bowel sounds General: Yes no CVA tenderness Back/Spine/Pelvis Back: no CVA tenderness Skin General skin exam: elasticity normal and turgor normal Neuro General: oriented to person, oriented to place, oriented to time, patient oriented x3, moves all extremities, no focal motor deficits and CN's II-XI intact bilaterally Cranial nerves: Yes Equal, round and reactive pupils present Cognition (Neuro): normal cognition Extrem General: Yes full ROM, Yes no pedal edema and Yes no calf tenderness Right upper extremity: Extremity exam: right hand Details: normal capillary refill, neuromotor exam abnormal, neurosensory exam normal, normal ROM of fingers and laceration 2nd digit palmar aspect mid Details: linear and superficial; not actively bleeding Hand/finger images: 1. 1.5cm linear laceration to palmar surface of right index finger without active bleeding, over PIP joint Psych Mental Status: mental status grossly normal Affect: normal affect Thought process: Normal thought process present Course Course Course Narrative: This is a rapid medical exam performed by Darius Ly NP: Additional HPI, ROS, PE not included below will be deferred to primary provider. 10/09/24 10:21 Patient is a 29-year-old right hand dominant female presenting with laceration to right index finger which occurred around 7pm last night. Unknown last Tdap. Denies numbness/tingling. Laceration to palmar surface of R index finger over PIP joint, no active bleeding. Plan: Update Tdap, could use a few sutures Medications Administered Discontinued Medications Generic Name Dose Route Start Last Admin Trade Name Freq PRN Reason Stop Dose Admin Bacitracin 1 appl 10/09/24 12:15 10/09/24 12:26 Bacitracin Oint 0.9 Gm Packet TOPICAL 10/09/24 12:16 1 appl ONCE ONE Administration Protocol Diphtheria/Tetanus/Acell Pertussis 0.5 ml 10/09/24 10:22 10/09/24 12:27 Diphth,Pertus(Acell),Tet Adult 0.5 Ml Syringe IM 10/09/24 10:23 0.5 ml .ONCE ONE Administration Lidocaine HCl 5 ml 10/09/24 12:15 10/09/24 12:26 Lidocaine Hcl 1 % Mpf 5 Ml Vial INFILTRATI 10/09/24 12:16 5 ml ONCE ONE Administration Procedures Laceration Laceration 1: Site: hand Side (If applicable): right Size (cm): 1.5 Description: linear Depth: simple, single layer Local Anesthetic: lidocaine 1% Amount of anesthesia used (mL): 2 Pre-repair: wound explored, irrigated extensively and deep structures intact Skin layer closed with: other (prolene) Size (cm): 5-0 Number of sutures: 4 Technique: simple, interrupted Medical Decision Making Medical Decision Making [facility] Narrative: Patient is a 29-year-old right hand dominant female presenting with laceration to right index finger which occurred around 7pm last night. On exam patient is awake, A+Ox3, VS WNL, afebrile, normal neurological exam without focal deficits, physical exam findings as above. Given reported symptoms and physical exam findings, initial differential includes but is not limited to laceration, tendon injury. Patient noted to have superficial laceration, no evidence of tendon injury, patient has full ROM and is NVI distally. Laceration repaired as per procedure note. Wound care instructions discussed with patient at bedside as well as return precautions. Patient verbalized understanding of and agreement with plan. Differential Diagnosis Differential Diagnoses: The differential diagnosis associated with the presentation includes As per [facility] External Record Review External record reviewed: Inpatient record, Office record and Outpatient record Discharge Plan Discharge Clinical Impression: Laceration of finger of right hand Patient Disposition: Home, Self-Care Instructions: Finger Laceration (ED), Care For Your Stitches (DC), Stitches Removal (ED) Additional Instructions: You have been evaluated in the emergency department today for a laceration to your finger. Your laceration was repaired in the emergency department with 4 sutures. Please keep the area surrounding the laceration clean and dry and keep dressing in place for the next 24 hours. After that please change the dressing and assess the wound daily. Do not submerge the wound in water until the stitches has been removed and the wound has fully healed (no washing dishes, swimming, hot tubs, etc. and ESPECIALLY no outdoor water). Keep the area out of direct sunlight for the next 6 months to help prevent scarring. You should have the sutures removed in 7-10 days. Your tetanus vaccine (Tdap) was updated at today's visit. If you develop fever, redness, swelling at the site of your laceration, or thick yellow drainage please come back to the ER for a wound check. Prescriptions: No Action metronidazole 0.75 % (37.5mg/5 gram) gel 1 appful vaginal BEDTIME 5 Days Qty: 70 0RF clindamycin HCl 300 mg capsule 300 mg PO BID norethindrone acetate 5 mg tablet 5 mg PO DAILY 10 Days Qty: 10 0RF Stand Alone Forms: Work/School Release Print Language: Trinidadian
[2024-10-09] MEDS: Bacitracin Oint 0.9 GM PACKET 1 APPL TOPICAL (12:26)
[2024-10-09] MEDS: Lidocaine HCl 1 % MPF 5 ML VIAL INFILTRATI (12:26)
[2024-10-09] MEDS: Diphth,Pertus(ACell),Tet Adult 0.5 ML SYRINGE IM (12:27)
--- NOTE | 2024-10-09 12:30 | PC.NURSE ---
Sutures applied to the cut on patients right 2nd finger. Dressing/splint applied. Patient tolerated procedure well.
[2024-10-09 13:06] VITALS: BP 133/84; PULSE 69; RESP 19; TEMP 36.6; O2SAT 99
--- OUTSIDE RECORDS SUMMARY | 2024-10-09 15:35 | XMS_ITS | Clinical Summary ---
Author Organization [employer] Address [address] [place] [address] Care Team Providers Care Parking Meter Mechanic Name Role Phone Unavailable Primary Care Provider Unavailabl e Social History Tobacco Use Types Packs/Day Years Used Date Smoking Tobacco: Never Assessed Comments Unknown Sex and Gender Information Value Date Recorded Sex Assigned at Female 03/08/2024 10:10 AM EDT Legal Sex Female 10:09 AM EDT Gender Identity Female 03/08/2024 10:10 AM EDT Sexual Orientation Not on file Plan of Treatment Health Maintenance Due Date Last Done Comments Depression Screening 1996 HIV Screening 1996 SDOH Screening 1996 Alcohol/Substance Use Screening 2008 Tobacco Screening 2008 Family Planning (PISQ) 2011 Hepatitis C Screening 2014 DTaP/Tdap/Td Vaccines (1 - Tdap) 2015 Hepatitis B Vaccines (1 of 3 - 19+ 3-dose series) 2015 Pap Smear 2017 COVID-19 Vaccine ( - 2023-2 5 season) 2024 Influenza Vaccine (#1) 2024 Zoster Vaccines (1 of 2) 2046 RSV Patients and Pa tients Aged 60 years or older (1 - 1-dose 75+ series) 2071 HIB Vaccines Aged Out No longer eligi ble based on patient's age to complete this topic HPV Vaccines Aged Out No longer eligi ble based on patient's age to complete this topic Hepatitis A Vaccines Aged Out No long er eligible based on patient's age to complete this topic IPV Vaccines Aged Out No longer eligi ble based on patient's age to complete this topic Meningococcal Vaccine Aged Out No graciela crystal eligible based on patient's age to complete this topic Pneumococcal Vaccine: Pediat rics (0 to 5 Years) and At-Risk Patients (6 to 49) Years) Aged Out No longer eligible b ased on patient's age to complete this topic RSV under 20 months Aged Out No longe r eligible based on patient's age to complete this topic Rotavirus Vaccines Aged Out No longer eligible based on patient's age to complete this topic
--- OUTSIDE RECORDS SUMMARY | 2024-10-09 15:35 | XMS_ITS | Clinical Summary ---
Author Organization [facility] Address [address] [place] [address] Care Team Providers Care Public Speaker Name Role Phone Jose Grijalva PA-C Primary Care Provider [phone] Source Comments PLEASE NOTE, if this patient is a minor, it may be UNLAWFUL to discuss sensitive information that is contained in these records (such as FAMILY PLANNING, MENTAL HEALTH or SUBSTANCE ABUSE) with the minor patient's parent or other person without the patient's specific authorization.[facility] Allergies No known active allergies Medications meclizine (ANTIVERT) 25 mg tabletIndication s:Dizziness Take 1 Tablet by mouth 2 (two) times daily as needed for nausea or dizziness 60 Tablet 1 2 Active ibuprofen 800 mg tabletIndication s:Pain in right axilla Take 1 Tablet by mouth 3 (three) times daily as needed for pain 40 Tablet 2 Active ferrous sulfate 325 mg (65 mg iron) tabletIndication s:Iron deficiency anemia, unspecified iron deficiency anemia type Take 1 Tablet by mouth once daily with breakfast 90 Tablet 2 2 Active Active Problems Problem Noted Date Diagnosed Date Iron deficiency anemia 12/05/2019 Immunizations Immunization Administration Dates Next Due HEP A-HEP B 03/05/2020 HPV 9 (Gardasil) 12/04/2019 HPV, QUADRIVALENT 04/10/2010,06/21/2008,10/27/19 08 Hep B, Unspecified 05/04/2016 Influenza Virus Vaccine (FLU MIST), Live Intranasal 04/10/2010 MENINGOCOCCAL MCV4P (MENACTRA) 10/27/2007 MMR (MMR II/Priorix) 05/04/2016 TDAP 12/04/2019,10/27/2007 Social History Tobacco Use Types Packs/Day Years Used Date Smoking Tobacco: Some Days Cigars Smokeless Tobacco: Never Tobacco Cessation:Ready to Q uit: Not Asked; Counseling Given: Not Answered Comments:black and milds Alcohol Use Standard Drinks/Week Comments Yes 0 (1 standard drink = 0.6 oz pur e alcohol) on occ Social Connections Answer Date Recorded Connectedness 0 03/24/2024 Financial Resource Strain Answer Date R ecorded Financial Resource Strain 0 2019 Stress Answer Date Recorded Stress 0 10/09/2019 Physical Activity Answer Date Recorded Physical Activity 0 10/09/2019 Food Insecurity Answer Date Recorded Food 0 03/29/2024 Transportation Needs Answer Date Record ed Transportation 0 10/09/2019 Housing Stability Answer Date Recorded Housing 0 10/09/2019 Safety and Environment Answer Date Daljit rded Safety 0 10/09/2019 Utilities Answer Date Recorded Utilities 0 10/09/2019 Employment Answer Date Recorded Stress 0 03/24/2024 Comments No Sex and Gender Information Value Date Recorded Sex Assigned at Female 01/17/2023 8:38 AM PDT Legal Sex Female 6:51 AM PST Gender Identity Female 01/17/2023 8:38 AM PDT Sexual Orientation Bisexual 01/17/2023 8: 38 AM PDT Last Filed Vital Signs Vital Sign Reading Time Taken Comments Blood Pressure 128/84 04/15/2022 1:51 PM EDT Pulse 74 04/15/2022 1:51 PM EDT Temperature 36.6 ??C (97.8 ??F) 04/15/2022 1:51 PM ED T Respiratory Rate 18 04/15/2022 1:51 PM EDT Oxygen Saturation 98% 08/21/2021 1:26 PM EST Inhaled Oxygen Concentration - - Weight 101.6 kg (224 lb) 04/15/2022 1:51 PM EDT Height 154.9 cm (5' 1 ) 08/21/2021 1:26 PM EST Body Mass Index 42.32 08/21/2021 1:26 PM EST Plan of Treatment Health Maintenance Due Date Last Done Comments Anxiety Screening 1996 HPV Screening 1996 Pap + HPV 1996 Tobacco Cessation Counseling (#1) 1996 Tobacco Screening 1996 Relationship Safety Screening/Counseling 2011 Imm-Pneumococcal (1 of 2 - PCV) 2015 Cervical Cancer Screening 2017 Pap Smear 2017 Imm-Hepatitis B (3 of 3 - 19 + 3-dose series) 04/30/2020 03/05/2020, 05/04/2016 Diabetes Screening 12/03/2020 12/04/2019, 12/04/2019 Hypertension Screening (#1) 04/15/2023 [id number] ( - season) 2024 021, 02/01/2021 Imm-Influenza (#1) 2024 04/10/2010 Alcohol and Drug Screen 07/04/2024 03/05/2020 Depression Annual Screen 07/04/2024 03/05/2020 Imm-DTaP/Tdap/Td (3 - Td or Tdap) 12/03/2029 020, 10/27/2007 Hepatitis C Screening Completed 12/04/2019 HIV Screening Completed 04/15/2022, 12/04/2019 Cervical Ablation/Cold-Knife Conization Discontinued Cervical Cryotherapy Discontinued Colposcopy Discontinued Endometrial Biopsy Discontinued Excision/Leep Discontinued HPV Genotyping Discontinued Vaginal Pap Discontinued Vulvoscopy Discontinued Procedures Procedure Name Priority Date/Time Associated Diagnosis Comments HIV 1/2 AG & AB W/RFLX (4TH GEN) Routine 04/15/2022 2:18 PM EDT Possible exposure to STD Vaginal odor Unprotected sex HEPATITIS A,B,C PANEL Routine 12/04/2019 2:57 PM EDT Hepatitis vaccination status unknown HEMOGLOBIN GLYCOSYLATED A1C Routine 12/04/2019 2:57 PM EDT Routine lab draw from Last 3 Months or Most Recently Relevant to Health Maintenance Results * HIV 1/2 AG & AB W/RFLX (4TH GEN) (04/15/2022 2:18 PM EDT) Pathologist [facility] HIV AG/AB, 4TH GEN NON-REAC TIVE NON-REAC TIVE [employer] [facility] Comment: HIV-1 antigen and HIV-1/HIV-2 antibodies were not detected. There is no laboratory evidence of HIV infection. PLEASE NOTE: This information has been disclosed to you from records whose confidentiality may be protected by state law. ??If your state requires such protection, then the state law prohibits you from making any further disclosure of the information without the specific written consent of the person to whom it pertains, or as otherwise permitted by law. A general authorization for the release of medical or other information is NOT sufficient for this purpose. ?? For additional information please refer to http://education.Red Tricycle/faq/FLH305 (This link is being provided for informational/ educational purposes only.) The performance of this assay has not been clinically validated in patients less than 2 years old. Blood Blood / Unknown 04/15/2022 2 :18 PM EDT 04/15/2022 2:19 PM EDT Deborah Galvez [facility] LAB - BLOOD DRAW Final Re sult [facility] [address] [address], [employer] [facility] [address] [address] * HEPATITIS A,B,C PANEL (12/04/2019 2:57 PM EDT) HEPATITIS B SURFACE ANTIBODY NEGATIVE NEGATIVE [facility] HEPATITIS B SURFACE ANTIGEN NEGATIVE NEGATIVE [facility] Comment: Over the counter supplements containing high doses of biotin may interfere with this assay. ??If interference is suspected, patients shoud be retested after refraining from biotin supplements for 72 hours. HEPATITIS C VIRUS DIAGNOSTIC NEGATIVE NEGATIVE [facility] HEPATITIS B CORE ANTIBODY NEGATIVE NEGATIVE [facility] HEPATITIS A ANTIBODY TOTAL NEGATIVE NEGATIVE [facility] Comment: Over the counter supplements containing high doses of biotin may interfere with this assay. ??If interference is suspected, patients shoud be retested after refraining from biotin supplements for 72 hours. Blood specimen (specimen) Blood / Unknown 12/04/2019 2:57 PM EDT 12/04/2019 3:51 PM EDT Hannah [employer] [facility] - 12/04/2019 6:32 PM EDT [employer], a member of [address] [address] Grocery Clerk - Jossie Beverly MD [place] [id number] ORD# [id number] Fior Singh PA-C LAB - BLOOD DRAW Edited Result - Final Performing Organization Address City/[facility]/ZIP Co de Phone Number [facility] [employer] [address], [place] [phone] * HEMOGLOBIN, GLYCOSYLATED (A1C) (12/04/2019 2:57 PM EDT) GLYCATED HEMOGLOBIN A1C 5.9 <6.5 % [facility] ESTIMATED AVERAGE GLUCOSE 123 mg/dL [facility] Blood specimen (specimen) Blood / Unknown 12/04/2019 2:57 PM EDT 12/04/2019 3:51 PM EDT [facility] [employer] [facility] - 12/04/2019 7:54 PM EDT [employer], a member of [address] [address] Grocery Clerk - Jossie Beverly MD [place] ID [id number] ORD# [id number] Fior Singh PA-C LAB - BLOOD DRAW Final Result Performing Organization Address City/[facility]/ZIP Co de Phone Number [address] [address], [place] [phone] from Last 3 Months or Most Recently Relevant to Health Maintenance Insurance [place] MEDICA[place] D[place] [facility] Member Subscriber Plan / Payer (Ef fective 2023-Present) Name:Harjeet Abraham Relation to Subscriber:Self Name:Harjeet Abraham Payer ID:[id number] Group ID:[id number] Type:Medicaid Address: [address] [address] Care Teams Public Speaker Relationship Specialty Start Date End Date Jose Grijalva PA-C [address] [place] [address] PCP - General 12/11/21
== END 2024-10-09 13:08 | disposition home or self-care (01) ==
PROVIDERS: Emergency Provider Emergency Medicine
DX: S61.210A Laceration without foreign body of right index finger without damage to nail, initial encounter (principal); W26.0XXA Contact with knife, initial encounter; Y93.G1 Activity, food preparation and clean up; Y92.9 Unspecified place or not applicable; Y99.9 Unspecified external cause status; Z23 Encounter for immunization
CPT/HCPCS: 12001; 90471; 90715; 99284; J2003

== ENCOUNTER 2024-10-10 10:44 | Outpatient (REF) | payer OTHER, SELFPAY ==
--- OUTSIDE RECORDS SUMMARY | 2024-10-10 13:47 | XMS_ITS | Clinical Summary ---
Author Organization [employer] Address [address] [facility] [address] [place] [address] Care Team Providers Care Dry Color Tester Name Role Phone Unavailable Primary Care Provider [...]
--- OUTSIDE RECORDS SUMMARY | 2024-10-10 13:47 | XMS_ITS | Clinical Summary ---
Author Organization [facility] Address [address] [place] [address] Care Team Providers Care Assistant Producer Name Role Phone Jose Grijalva PA-C Primary [...] 12/03/2020 12/04/2019, 12/04/2019 Hypertension Screening (#1) 04/15/2023 [id number] ( - season) 2024 021, 02/01/2021 Imm-Influenza [...] (4TH GEN) (04/15/2022 2:18 PM EDT) Pathologist [facility] HIV AG/AB, 4TH GEN NON-REAC TIVE NON-REAC TIVE [facility] Comment: HIV-1 antigen and HIV-1/HIV-2 antibodies were [...] ?? For additional information please refer to http://education.[employer]/faq/RNT710 (This link is being provided for informational/ educational purposes only.) The performance of this assay has not been clinically validated in patients less than 2 years old. Blood Blood / Unknown 04/15/2022 2 :18 PM EDT 04/15/2022 2:19 [address] [facility] LAB - BLOOD DRAW Final Re sult [facility] [address] [address], [facility] [address] [address] * HEPATITIS A,B,C PANEL (12/04/2019 2:57 PM EDT) HEPATITIS B SURFACE ANTIBODY NEGATIVE NEGATIVE [facility] HEPATITIS B SURFACE ANTIGEN NEGATIVE NEGATIVE [facility] Comment: Over the counter supplements containing high doses of biotin may interfere with this assay. ??If interference is suspected, patients shoud be retested after refraining from biotin supplements for 72 hours. HEPATITIS C VIRUS DIAGNOSTIC NEGATIVE NEGATIVE [facility] HEPATITIS B CORE ANTIBODY NEGATIVE NEGATIVE [facility] HEPATITIS A ANTIBODY TOTAL NEGATIVE NEGATIVE [facility] Comment: Over the counter supplements containing high doses of biotin may interfere with this assay. ??If interference is suspected, patients shoud be retested after refraining from biotin supplements for 72 hours. Blood specimen (specimen) Blood / Unknown 12/04/2019 2:57 PM EDT 12/04/2019 3:51 PM EDT Hannah [facility] - 12/04/2019 6:32 PM EDT [employer], a member of [address] [address] Air Conditioner Installer Helper - Jossie Beverly MD [place] [id number] ORD# [id number] Fior Singh PA-C LAB - BLOOD DRAW Edited Result - Final Performing Organization Address City/[facility]/ZIP Co de Phone Number [facility] [employer] [address], [place] [phone] * HEMOGLOBIN, GLYCOSYLATED (A1C) (12/04/2019 2:57 PM EDT) GLYCATED HEMOGLOBIN A1C 5.9 <6.5 % [facility] ESTIMATED AVERAGE GLUCOSE 123 mg/dL [facility] Blood specimen (specimen) Blood / Unknown 12/04/2019 2:57 PM EDT 12/04/2019 3:51 PM EDT Hannah [facility] - 12/04/2019 7:54 PM EDT [employer], a member of [address] [address] Air Conditioner Installer Helper - Jossie Beverly MD [place] [id number] ORD# [id number] Fior Singh PA-C LAB - BLOOD DRAW Final Result Performing Organization Address City/[facility]/ZIP Co de Phone Number [address] [address], [place] [phone] from Last 3 Months or Most Recently Relevant to Health Maintenance Insurance [place] MEDICAID [facility] PLAN Member Subscriber Plan / Payer (Ef fective 2023-Present) Name:Harjeet Abraham Relation to Subscriber:Self Name:Harjeet Abraham Payer ID:[id number] Group ID:[id number] Type:Medicaid Address: [address] [address] Care Teams Assistant Producer Relationship Specialty Start Date End Date Jose Grijalva PA-C [address] [place] [address] PCP - General 12/11/21
[2024-10-11 09:52] LABS: Bacterial Vaginosis PCR POSITIVE (Negative); Candida Group PCR NOT DETECTED (Not Detect); Candida glab krusei PCR NOT DETECTED (Not Detect); Trichomonas vaginalis PCR NOT DETECTED (Not Detect)
[2024-10-11 10:23] LABS: CT PCR NOT DETECTED (Not Detect.); NG PCR NOT DETECTED (Not Detect.)
== END 2024-10-10 10:45 | disposition home or self-care (01) ==
LOC: HO.LAB 10:44
PROVIDERS: Visit Provider Advanced Practice Midwife
DX: Z01.419 Encounter for gynecological examination (general) (routine) without abnormal findings (principal); N89.8 Other specified noninflammatory disorders of vagina; Z20.2 Contact with and (suspected) exposure to infections with a predominantly sexual mode of transmission
CPT/HCPCS: 81515; 87491; 87591; 99395; 99459

== ENCOUNTER 2024-10-10 10:44 | Outpatient (AMB) | payer OTHER, SELFPAY ==
--- NOTE | 2024-10-10 10:48 | MHC.OFFVIS ---
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 She gets irregular periods she had 1 in August lasted 5 days but it was very very light. She does not remember when previous 1 was before that. She is actually hoping to conceive as she would like to have another baby her child is 5 years old delivered it [facility] she had preeclampsia during that and she knows that she would returned to [facility] for care and management and delivery she was on baby aspirin in the previous as well and I reminded her that she probably would be again. She finally has a primary care provider appointment scheduled for tomorrow at [facility]. She is not yet on any thyroid medication but we will be discussing this with them tomorrow. She is also anticipating talking about the irregular periods which we also discussed in great detail today. She is absolutely not interested in any method of control because she wants to conceive and she does know that different hormonal methods of control can be used and are used to help regulate menses but she is not interested in them at all at this time. She herself is working on weight loss by trying to eat healthy avoid junk food limit her portions increase her activity have regular healthy meals and she is losing weight and is feeling very good about it and feels good in her body as well. She cut her finger while cooking yesterday and had to go the emergency room and had 4 stitches placed in her finger she has it covered with a dry gauze dressing currently. I gave her some large gloves to put over that hand to keep the dressing dry. REPLACED BY [facility] Medical History Amenorrhea Elevated TSH Hypertension Surgical History Previous section Social History Alcohol intake: current Alcohol intake frequency: a few times a month Patient Tobacco Use Status: Current everyday Tobacco user Tobacco use type: Cigarette Substance Use Type: Marijuana Female Reproductive History Menstrual Age of Menarche: 13 Duration of menses: <3 days control method: none Total pregnancies: 1 Full term: 1 Date of last pap smear: 08/04/23 (negative) History of abnormal pap smear: No Physical Exam Vital Signs: Last Vital Signs BP 110/68 10/10/24 10:55 BMI result Body Mass Index 38.4 Const General: healthy appearing, comfortable, no acute distress, well developed and alert Nutritional Appearance: average body habitus Orientation/consciousness: patient oriented x3 Limitations: no limitations HEENT Head: Yes normocephalic Neck Neck: Yes normal visual inspection Chest Chest palpation & inspection: normal inspection of the chest Breast/axilla inspection: normal inspection of the breasts and normal inspection of the axillae Breast/axilla palpation: normal palpation of the breasts and normal palpation of the axillae Resp Effort & Inspection: normal respiratory effort GI Inspection: Yes normal to inspection, No Abdominal wall edema and No distended Palpation (GI): Soft to palpation and nontender Other: External exam within normal limits vagina pink and moist healthy appearing mucus and secretions cervix appears pink smooth healthy mobile appears nulliparous with clear mucus uterus small mobile midposition nontender difficult to feel size completely but nontender adnexa nontender good tone with Kegel. General: Yes bladder normal to palpation External Female Exam: normal external appearance and normal appearance of the urethra Speculum Exam - Vagina: normal appearance of the vagina, normal palpation and normal vaginal discharge Speculum Exam - Cervix: normal appearance of the cervix, normal palpation and nontender Bimanual exam- vagina & uterus: normal bimanual exam, normal palpation, uterine size normal, bladder normal to palpation, consistency normal, normal palpation, uterine mobility normal, uterine shape normal, No Cervical tenderness present, non-tender and no cervical motion tenderness Bimanual Exam- Adnexa, other: normal adnexae, no masses, normal and No adnexal tenderness Neuro General: patient oriented x3 Assessment & Plan Assessment & Plan (1) Women's annual routine gynecological examination: Code(s): Z01.419 - Encounter for gynecological examination (general) (routine) without abnormal findings Category: Medical (2) Irregular menstruation, unspecified: Code(s): N92.6 - Irregular menstruation, unspecified Category: Medical (3) Cervical cancer screening: Comment: 08/03/2023 Pap is negative. Code(s): Z12.4 - Encounter for screening for malignant neoplasm of cervix Category: Medical (4) Elevated TSH: Code(s): R79.89 - Other specified abnormal findings of blood chemistry Category: Medical (5) Obesity (BMI 35.0-39.9 without comorbidity): Comment: Patient is active working on weight loss by healthy eating patterns... Code(s): E66.9 - Obesity, unspecified Category: Medical (6) History of severe pre-eclampsia: Code(s): Z87.59 - Personal history of other complications of , childbirth and the puerperium Category: Medical Plan Patient is here for coupler annual exam. She gets irregular periods she had 1 in August lasted 5 days but it was very very light. She does not remember when previous 1 was before that. She is actually hoping to conceive as she would like to have another baby her child is 5 years old delivered it [facility] she had preeclampsia during that and she knows that she would returned to [facility] for care and management and delivery she was on baby aspirin in the previous as well and I reminded her that she probably would be again. She finally has a primary care provider appointment scheduled for tomorrow at [facility]. She is not yet on any thyroid medication but we will be discussing this with them tomorrow. She is also anticipating talking about the irregular periods which we also discussed in great detail today. She is absolutely not interested in any method of control because she wants to conceive and she does know that different hormonal methods of control can be used and are used to help regulate menses but she is not interested in them at all at this time. She herself is working on weight loss by trying to eat healthy avoid junk food limit her portions increase her activity have regular healthy meals and she is losing weight and is feeling very good about it and feels good in her body as well. She cut her finger while cooking yesterday and had to go the emergency room and had 4 stitches placed in her finger she has it covered with a dry gauze dressing currently. I gave her some large gloves to put over that hand to keep the dressing dry. Her Pap smear was done last year and it was negative and she has never had an abnormal so no Pap done today. Testing offered and done for gonorrhea chlamydia trichomoniasis as well as bacterial vaginosis and yeast her discharge appeared very clear healthy appearing. Discussed in great detail the interplay of hi weight with irregular menses in the benefits of hormonal treatment to help regulate menses and prevent too much buildup of the endometrial lining was all its attendant risks including hemorrhage she is not at all interested now but I did want to present information for future use. Currently she is working at primary prevention by trying to eat healthy and lose weight which is the best thing she could be doing for her health. Tomorrow she will meet with her new primary care provider and also discuss the thyroid issue discussed anticipating fasting blood work and possibly a prescription for medication for her thyroid and retesting in follow-up from there. I do recommend that she try not to conceive until she gets all of her health concerns though was and reminded her that condoms can be very helpful in useful even if somebody does not want a hormonal method of control and to consider them while she is working on losing the weight and getting everything checked out. Be on that as she is interested in conceiving I offered her prescription for vitamins that she could start now in anticipation of future conception she would return to [facility] for care secondary to her history of preeclampsia. Orders: Orders Bacterial Vaginosis Panel Today N89.8 - Other specified noninflammatory disorders of vagina CT NG by PCR Today N89.8 - Other specified noninflammatory disorders of vagina, Z20.2 - Contact with and (suspected) exposure to infections with a predominantly sexual mode of transmission Medications: New PNV,calcium 21-rnyy-opxuv acid 27 mg iron- 1 mg ( Vitamins Plus Low Iron) 1 tab PO DAILY 90 tabs 1RF Coding Level of Care Code Est Pt Prev Care 18-39y(30169) Diagnoses Women's annual routine gynecological examination Z01.419 Irregular menstruation, unspecified N92.6 Cervical cancer screening Z12.4 Elevated TSH R79.89 Obesity (BMI 35.0-39.9 without comorbidity) E66.9 History of severe pre-eclampsia Z87.59
[2024-10-10 10:55] VITALS: BP 110/68; BMI 39.7
--- OUTSIDE RECORDS SUMMARY | 2024-10-10 12:27 | XMS_ITS | Clinical Summary ---
Author Organization [facility] Address [address] [place] [address] Care Team Providers Care Justice Court Judge Name Role Phone Jose Grijalva PA-C Primary Care Provider Source Comments PLEASE NOTE, if this patient [...] 12/03/2020 12/04/2019, 12/04/2019 Hypertension Screening (#1) 04/15/2023 [id number] ( - season) 2024 021, 02/01/2021 Imm-Influenza [...] (4TH GEN) (04/15/2022 2:18 PM EDT) Pathologist [facility] HIV AG/AB, 4TH GEN NON-REAC TIVE NON-REAC TIVE [employer] [facility] Comment: HIV-1 antigen and HIV-1/HIV-2 antibodies were [...] ?? For additional information please refer to http://education.FreeCharge/faq/BBF012 (This link is being provided for informational/ educational purposes only.) The performance of this assay has not been clinically validated in patients less than 2 years old. Blood Blood / Unknown 04/15/2022 2 :18 PM EDT 04/15/2022 2:19 PM EDT Deborah Galvez [facility] - BLOOD DRAW Final Re sult [facility] [address] [address], [employer] [facility] [address] [address] * HEPATITIS A,B,C PANEL (12/04/2019 2:57 PM EDT) HEPATITIS B SURFACE ANTIBODY NEGATIVE NEGATIVE [facility] HEPATITIS B SURFACE ANTIGEN NEGATIVE NEGATIVE [facility] Comment: Over the counter supplements containing high doses of biotin may interfere with this assay. ??If interference is suspected, patients shoud be retested after refraining from biotin supplements for 72 hours. HEPATITIS C VIRUS DIAGNOSTIC NEGATIVE NEGATIVE [facility] HEPATITIS B CORE ANTIBODY NEGATIVE NEGATIVE [facility] HEPATITIS A ANTIBODY TOTAL NEGATIVE NEGATIVE [facility] Comment: Over the counter supplements containing high doses of biotin may interfere with this assay. ??If interference is suspected, patients shoud be retested after refraining from biotin supplements for 72 hours. Blood specimen (specimen) Blood / Unknown 12/04/2019 2:57 PM EDT 12/04/2019 3:51 PM EDT [email or web address] - 12/04/2019 6:32 PM EDT [employer], a member of [address] [address] Heel Padder - Jossie Beverly MD [place] [id number] ORD# [id number] Fior Singh PA-C LAB - BLOOD DRAW Edited Result - Final Performing Organization Address City/[facility]/ZIP Co de Phone Number [facility] [employer] [address], [place] [phone] * HEMOGLOBIN, GLYCOSYLATED (A1C) (12/04/2019 2:57 PM EDT) GLYCATED HEMOGLOBIN A1C 5.9 <6.5 % [facility] ESTIMATED AVERAGE GLUCOSE 123 mg/dL [facility] Blood specimen (specimen) Blood / Unknown 12/04/2019 2:57 PM EDT 12/04/2019 3:51 PM EDT [email or web address] - 12/04/2019 7:54 PM EDT [employer], a member of [address] [address] Heel Padder - Jossie Beverly MD [place] ID [id number] ORD# [id number] Fior Singh PA-C LAB - BLOOD DRAW Final Result Performing Organization Address City/[facility]/ZIP Co de Phone Number [address] [address], [place] [phone] from Last 3 Months or Most Recently Relevant to Health Maintenance Insurance [place] MED[place] D[place] [employer] Member Subscriber Plan / Payer (Ef fective 2023-Present) Name:Harjeet Abraham Relation to Subscriber:Self Name:Harjeet Abraham Payer ID:[id number] Group ID:[id number] Type:Medicaid Address: [address] [address] Judge Relationship Specialty Start Date End Date Jose Grijalva PA-C [address] [place] [address] PCP - General 12/11/21
--- OUTSIDE RECORDS SUMMARY | 2024-10-10 12:27 | XMS_ITS | Clinical Summary ---
Author Organization [employer] Address [address] [facility] [address] [place] [address] Care Team Providers Care Jigger Operator Name Role Phone Unavailable Primary Care Provider [...]
== END 2024-10-10 13:00 | disposition home or self-care (01) ==
LOC: HO.HWSM 10:45
PROVIDERS: Visit Provider Advanced Practice Midwife
DX: Z01.419 Encounter for gynecological examination (general) (routine) without abnormal findings (principal); N92.6 Irregular menstruation, unspecified; R79.89 Other specified abnormal findings of blood chemistry; E66.9 Obesity, unspecified
CPT/HCPCS: 99395; 99459

== ENCOUNTER 2024-10-11 07:44 | Outpatient (AMB) | payer OTHER, SELFPAY ==
--- OUTSIDE RECORDS SUMMARY | 2024-10-11 07:50 | XMS_ITS | Clinical Summary ---
Author Organization [employer] Address [address] [facility] [address] [place] [address] Care Team Providers Care Laboratory Sampler Name Role Phone Unavailable Primary Care Provider [...]
--- OUTSIDE RECORDS SUMMARY | 2024-10-11 07:50 | XMS_ITS | Clinical Summary ---
Author Organization [facility] Address [address] [place] [address] Care Team Providers Care Roustabout Supervisor Name Role Phone Jose Grijalva PA-C Primary [...] 12/03/2020 12/04/2019, 12/04/2019 Hypertension Screening (#1) 04/15/2023 [id number] ( - season) 2024 021, 02/01/2021 Imm-Influenza [...] (4TH GEN) (04/15/2022 2:18 PM EDT) Pathologist [facility] HIV AG/AB, 4TH GEN NON-REAC TIVE NON-REAC TIVE [facility] Comment: HIV-1 antigen and HIV-1/HIV-2 antibodies were [...] ?? For additional information please refer to http://education.[employer]/faq/YNM256 (This link is being provided for informational/ educational purposes only.) The performance of this assay has not been clinically validated in patients less than 2 years old. Blood Blood / Unknown 04/15/2022 2 :18 PM EDT 04/15/2022 2:19 PM EDT Deborah Galvez [facility] LAB - BLOOD DRAW Final Re sult [facility] [address] [address], [facility] [address] [address] * HEPATITIS A,B,C PANEL (12/04/2019 2:57 PM EDT) HEPATITIS B SURFACE ANTIBODY NEGATIVE NEGATIVE [facility] HEPATITIS B SURFACE ANTIGEN NEGATIVE NEGATIVE [facility] Comment: Over the counter supplements containing high doses of biotin may interfere with this assay. ??If interference is suspected, patients shoud be retested after refraining from biotin supplements for 72 hours. HEPATITIS C VIRUS DIAGNOSTIC NEGATIVE NEGATIVE [facility] HEPATITIS B CORE ANTIBODY NEGATIVE NEGATIVE [facility] HEPATITIS A ANTIBODY TOTAL NEGATIVE NEGATIVE [facility] Comment: Over the counter supplements containing high doses of biotin may interfere with this assay. ??If interference is suspected, patients shoud be retested after refraining from biotin supplements for 72 hours. Blood specimen (specimen) Blood / Unknown 12/04/2019 2:57 PM EDT 12/04/2019 3:51 PM EDT [facility] - 12/04/2019 6:32 PM EDT [employer], a member of [address] [address] Securities And Real Estate Director - Jossie Beverly MD [place] [id number] ORD# [id number] Fior Singh PA-C LAB - BLOOD DRAW Edited Result - Final Performing Organization Address City/[facility]/ZIP Co de Phone Number [facility] [employer] [address], [place] [phone] * HEMOGLOBIN, GLYCOSYLATED (A1C) (12/04/2019 2:57 PM EDT) GLYCATED HEMOGLOBIN A1C 5.9 <6.5 % [facility] ESTIMATED AVERAGE GLUCOSE 123 mg/dL [facility] Blood specimen (specimen) Blood / Unknown 12/04/2019 2:57 PM EDT 12/04/2019 3:51 PM EDT Hannah Saber [facility] - 12/04/2019 7:54 PM EDT [employer], a member of [address] [address] Securities And Real Estate Director - Jossie Beverly MD [place] ID [id number] ORD# [id number] Fior Singh PA-C LAB - BLOOD DRAW Final Result Performing Organization Address City/[facility]/ZIP Co de Phone Number [address] [address], [place] [phone] from Last 3 Months or Most Recently Relevant to Health Maintenance Insurance [place] MEDICAID DENTAL [facility] PLAN Member Subscriber Plan / Payer (Ef fective 2023-Present) Name:Harjeet Abraham Relation to Subscriber:Self Name:Harjeet Abraham Payer ID:[id number] Group ID:[id number] Type:Medicaid Address: [address] [address] Care Teams Roustabout Supervisor Relationship Specialty Start Date End Date Jose Grijalva PA-C [address] [place] [address] PCP - General 12/11/21
[2024-10-11 07:55] VITALS: BP 102/52; PULSE 68; O2SAT 98; BMI 40.2
--- NOTE | 2024-10-11 07:55 | A.OFFPC_ITS ---
Vital Signs 10/11/24 07:55 Height 5 ft 2 in Weight 220 lb BMI 40.2 BP 102/52 L Blood Pressure Location Lt brachial Position Sitting Pulse 68 Pulse Source Pulse Oximeter Pulse Oximetry (%) 98 Oxygen Delivery Method Room Air Intake Visit Reasons: New Patient Simulation Analyst Required: No Allergies No Known Allergies Allergy (Verified 10/11/24 08:09) Medication List - Last Reconciled 10/11/24 by Donna Best PA-C PNV,calcium 10-wvrz-nlyjg acid 27 mg iron- 1 mg ( Vitamins Plus Low Iron ) 1 tab PO DAILY Tobacco use date assessed: 10/11/24 Dental Screening Dental Screen Date: 10/11/24 Did you have a dental visit in the last 12 months?: Yes Did you have a dental problem in the last 6 months where you did not have access to dental care?: No Was dental information given to patient?: Patient has dentist HPI New Patient HPI Details 29 year old female coming to the office for the first time. Presenting with amenorrhea and elevated thyroid hormone levels. Reports irregular menstruation since August, historically heavy but currently absent. Thyroid function evaluation showed elevated thyroid hormone; advised to seek further endocrine evaluation Wishes to avoid hormonal contraceptives due to prior menstrual dysfunction. Smokes cigars daily; considering quitting but without current smoking cessation interventions. Experiences anxiety related to daily life, manages without medication or therapy interventions. New onset nausea in the morning post-eating over the past week. [facility] Medical History Family history of diabetes mellitus Amenorrhea Elevated TSH Hypertension Surgical History Previous section Family History Mother Diabetes Father Diabetes Daughter Autism Other Mental health disorder Social History Housing: Apartment Alcohol intake: current Alcohol intake frequency: a few times a month Patient Tobacco Use Status: Current everyday Tobacco user Tobacco use type: Cigar (One a day) e-Cigarette/Vaping Use: Never Used Second Hand Smoke Exposure: Yes Substance Use Type: Marijuana service: No Current occupational status: employed Current occupation: [employer] Current occupational exposures/hazards: No Cognitive needs: No Hearing needs: No Vision needs: No Female Reproductive History Menstrual Age of Menarche: 13 control method: none Total pregnancies: 2 Full term: 1 Ab induced: 1 History of abnormal pap smear: No Questionnaire PHQ-9 Over the last 2 weeks, how often have you been bothered by any of the following problems? 1. Little interest or pleasure in doing things: not at all 2. Feeling down, depressed, or hopeless: not at all 3. Trouble falling or staying asleep, or sleeping too much: not at all 4. Feeling tired or having little energy: several days 5. Poor appetite or overeating: several days 6. Feeling bad about yourself - or that you are a failure or have let yourself or your family down: not at all 7. Trouble concentrating on things, such as reading the newspaper or watching television: not at all 8. Moving or speaking so slowly that other people could have noticed. Or the opposite - being so fidgety or restless that you have been moving around a lot more than usual: not at all 9. Thoughts that you would be better off or of hurting yourself in some way: not at all Total score: 2 Depression Screening Interpretation: Positive Depression Screening Follow-up: Declines treatment Depression Screening Done: Yes 88793 - PHQ-9 Billing: Yes Source: Developed by Drs. Deshaun Brody, Chichi Dunn, Remy Latham and colleagues, with an educational maria elena from [employer]. Thrive Questionnaire Date Thrive assessed: 10/11/24 I am a: Patient What is your living situation today?: I have a steady place to live Within the past 12 months, did the food you bought not last and you didn't have the money to get more?: Never true Within the past 12 months, did you worry whether your food would run out before you got money to buy more?: Never true Do you have trouble paying for medicines?: No Do you have trouble getting transportation to medical appointments?: I choose not to answer this question Do you have trouble paying your heating and electricity bill?: No Do you have trouble taking care of your child, family member or friend?: No Do you have trouble with day-to-day activities such as bathing, preparing meals, shopping, managing finances, etc.?: No Are you currently unemployed and looking for a job?: I choose not to answer this question Are you interested in more education?: I choose not to answer this question Please select the resources that you would like help with: None Currently or been in a relationship where the following occur: I choose not to answer THRIVE Score: 0 AUDIT C Alcohol Use Questionnaire (AUDIT-C) 1. How often do you have a drink containing alcohol?: 2-4 times a month 2. How many drinks containing alcohol do you have on a typical day when you are drinking?: 3 or 4 3. How often do you have six or more drinks on one occasion?: Monthly Total Score: 5 Score Reviewed/Action Taken: Yes BRUNO-7 AMB Questionnaire BRUNO-7 Date BRUNO - 7 assessed: 10/11/24 Feeling nervous, anxious, or on edge: 0 = Not at all Not being able to stop or control worryin = Not at all Worrying too much about different things: 0 = Not at all Trouble relaxin = Not at all Being so restless that it is hard to sit still: 0 = Not at all Becoming easily annoyed or irritable: 0 = Not at all Feeling afraid as if something awful might happen: 0 = Not at all Total BRUNO-7 score (0-4 normal; 5-9 mild; 10-14 moderate; 15-21 severe): 0 Source: Developed by Drs. Deshaun Brody, Chichi Dunn, Remy Latham and colleagues, with an educational maria elena from [employer]. BRUNO-7 Assessment Billing BRUNO-7 Assessment Tool: BRUNO-7 Assessment 08333 Review of Systems Const Denies body aches, Denies chills, Denies fever(s), Denies headache(s) and Denies poor appetite Eyes Reports no additional complaints ENT Denies dizziness and Denies headache(s) Card Denies chest pain, Denies irregular heart rhythm, Denies lightheadedness and Denies dyspnea Resp Denies cough and Denies dyspnea GI Denies abdominal pain, Denies constipation, Denies diarrhea, Reports nausea (in the morning) and Denies vomiting Details: irRegular menses Musc Reports no additional complaints and Denies abnormal gait Skin/Breast Reports system reviewed and no additional complaints, except as documented Neuro Denies abnormal gait, Denies dizziness and Denies headache(s) Psych Reports no additional complaints Physical exam (Primary Care) Vital Signs: Last Vital Signs Pulse 68 10/11/24 07:55 BP 102/52 L 10/11/24 07:55 Pulse Ox 98 10/11/24 07:55 Oxygen Delivery Method Room Air 10/11/24 07:55 BMI result Body Mass Index 40.2 Tobacco/Smoking Status: Tobacco use Status Tobacco use date assessed 10/11/24 10/11/24 08:07 Patient Tobacco Use Status Current everyday Tobacco 10/11/24 08:07 Tobacco use type Cigar (One a day) 10/11/24 08:07 e-Cigarette/Vaping Use Never Used 10/11/24 08:07 Are you ready to quit: Yes Tobacco cessation counseling provided: Yes Items discussed: Nicotine replacement Relapse Prevention: weight gain after smoking is common and discussed dietary, exercise and/or lifestyle changes CPT code: Less than 3 minutes PHQ-9: PHQ-9 Score PHQ-9: Total score 2 10/11/24 08:09 Depression Screening Interpretation: Positive Depression Screening Follow-up: Declines treatment Thrive Assessment: Date of Thrive Assessment Date Thrive assessed 10/11/24 10/11/24 08:07 Currently or been in a relationship where the following occur: I choose not to answer Const General: cooperative, healthy appearing, comfortable and no acute distress Orientation/consciousness: patient oriented x3 HENMT Head: Yes normocephalic Ears: hearing grossly normal bilaterally General nose exam: Normal external nose present Eyes General: appearance normal, both eyes and all related structures Conjunctivae: conjunctivae normal Neck Neck: Yes full ROM and Yes no lymphadenopathy Resp Effort & Inspection: normal respiratory effort Auscultation: clear to auscultation bilaterally, no crackles, no rales, no rhonchi and no wheezes Cardio Rate: regular rate Rhythm: regular rhythm Skin General skin exam: no rashes or lesions noted Neuro General: patient oriented x3 Gait exam (Neuro): Normal gait present Extrem General: Yes normal to inspection, Yes full ROM and No edema Psych Affect: normal affect Attitude: cooperative Insight: Good insight present (Psych) Judgement: Good judgement present (Psych) Coding Level of Care Code New Pt Level 4 (58894) Diagnoses Obesity (BMI 35.0-39.9 without comorbidity) E66.9 Cervical cancer screening Z12.4 Elevated TSH R79.89 Hypertension I10 Amenorrhea N91.2 Tobacco use Z72.0 Additional Codes BRUNO-7 Assessment Billing - BRUNO-7 Assessment Tool: BRUNO-7 Assessment 75940 ([id number]) PHQ-9 - 18571 - PHQ-9 Billing: Yes ([id number]) Assessment & Plan Assessment & Plan (1) Obesity (BMI 35.0-39.9 without comorbidity): Comment: Patient is active working on weight loss by healthy eating patterns... Code(s): E66.9 - Obesity, unspecified Category: Medical Plan: Healthy diet and regular exercise is encouraged. (2) Cervical cancer screening: Comment: 08/03/2023 Pap is negative. Code(s): Z12.4 - Encounter for screening for malignant neoplasm of cervix Category: Medical Plan: Continue to follow with gynecology for Pap smear screening (3) Elevated TSH: Code(s): R79.89 - Other specified abnormal findings of blood chemistry Category: Medical Plan: Patient having elevated TSH on last blood work ordered for repeat thyroid labs including free T4 for further evaluation. Likely will need treatment with levothyroxine (4) Hypertension: Comment: History of severe preeclampsia has had high blood pressures often on since delivery blood pressure was high at ER visit in May 2023. 09/26/2023 normotensive. Code(s): I10 - Essential (primary) hypertension Category: Medical Plan: Avoid salt intake and encourage healthy diet and regular exercise. (5) Amenorrhea: Code(s): N91.2 - Amenorrhea, unspecified Category: Medical Plan: Patient having absent menses for the last 2 months there is a possibility of and urine was ordered today. I will also begin secondary workup for amenorrhea including lab work and potentially imaging with pelvic and transvaginal ultrasound if blood work does not identify underlying cause. (6) Tobacco use: Code(s): Z72.0 - Tobacco use Category: Social Hx Plan: Smoking cigars and the use of tobacco can be harmful. We discussed the importance of stopping and options to aid in smoking cessation. Declines nicotine replacement therapy Plan Further thyroid function testing will be performed, including TSH and T4 to assess and manage elevated thyroid hormone levels, which may impact menstruation regularity. Bloodwork for cholesterol screening and thyroid panels will be ordered. The patient's amenorrhea will be assessed through a planned test and addressing potential weight factors. Smoking cessation aid exploration is recommended. This note was constructed using voice recognition software. While every effort has been made to ensure accuracy and furnace mechanic helper, still areas may have been included sometimes these areas may affect the content or meeting of the given symptoms. Total time spent caring for the patient today was 30 minutes. This includes time spent before the visit reviewing the chart, time spent during the visit, and time spent after the visit and documentation. Patient was informed and verbally consented to the use of an ambient scribe for clinic note documentation during this visit. Orders: Orders Vitamin B12 and Folate Today Z00.00 - Encounter for general adult medical examination without abnormal findings Comprehensive Met. Panel Today Z00.00 - Encounter for general adult medical examination without abnormal findings Lipid Panel Today Z13.220 - Encounter for screening for lipoid disorders Prolactin Today N91.2 - Amenorrhea, unspecified Follicle Stimulating Hormone Today N91.2 - Amenorrhea, unspecified Estradiol Ultra Sensitive Today N91.2 - Amenorrhea, unspecified TSH reflex Free T4 Today R79.89 - Other specified abnormal findings of blood chemistry, Z00.00 - Encounter for general adult medical examination without abnormal findings Free T4 (Free Thyroxine) Today R79.89 - Other specified abnormal findings of blood chemistry, Z00.00 - Encounter for general adult medical examination without abnormal findings Vitamin D 25-OH Total Today Z00.00 - Encounter for general adult medical examination without abnormal findings Ur Preg Test Today N91.2 - Amenorrhea, unspecified
== END 2024-10-11 08:46 | disposition home or self-care (01) ==
LOC: HO.HMCH 07:44
DX: I10 Essential (primary) hypertension (principal); E66.9 Obesity, unspecified; Z68.41 Body mass index [BMI] 40.0-44.9, adult; Z12.4 Encounter for screening for malignant neoplasm of cervix; R79.89 Other specified abnormal findings of blood chemistry; N91.2 Amenorrhea, unspecified; Z72.0 Tobacco use

== ENCOUNTER → 2024-10-11 07:44 | Outpatient (BNVA) | payer OTHER, SELFPAY | DX: N91.2 Amenorrhea, unspecified (principal); F17.290 Nicotine dependence, other tobacco product, uncomplicated; F41.9 Anxiety disorder, unspecified; E66.9 Obesity, unspecified; R79.89 Other specified abnormal findings of blood chemistry; I10 Essential (primary) hypertension | CPT/HCPCS: 96127; 99202 ==

== ENCOUNTER 2024-10-15 12:27 | Outpatient (REF) | payer OTHER, SELFPAY ==
[2024-10-15 13:11] LABS: UPreg QC Valid YES; Urine Pregnancy NEGATIVE (NEGATIVE)
[2024-10-15 14:00] LABS: Alanine Aminotransferase 20 U/L (0-31); Alkaline Phosphatase 82 U/L (39-117); Anion Gap 8 (12-20); Aspartate Amino Transferase 21 U/L (5-31); Bilirubin Total 0.6 mg/dL (0.0-1.0); Blood Urea Nitrogen 12 mg/dL (9-16); Calcium 9.3 mg/dL (8.4-10.2); Carbon Dioxide 24 mmol/L (22-29); Chloride 111 mmol/L (96-108); Cholesterol 190 mg/dL (<200); Estimated Glomerular Filt Rate > 60; Glucose Random 121 mg/dL (60-115); HDL Cholesterol 72 mg/dL (>40); LDL Cholesterol Calculated 100 mg/dL (<100); Potassium 3.9 mmol/L (3.3-5.1); Sodium 139 mmol/L (135-145); Triglycerides 93 mg/dL (<150)
[2024-10-15 14:11] LABS: Free T4 (Free Thyroxine) 0.82 ng/dL (0.71-1.85); TSH reflex Free T4 1.71 uIU/mL (0.32-4.0); Vitamin D 25-OH Total 12.4 ng/mL (>30)
[2024-10-15 14:15] LABS: Folate 9.1 ng/mL (> or = 4.0); Vitamin B12 417 pg/mL (200-900)
--- OUTSIDE RECORDS SUMMARY | 2024-10-15 14:21 | XMS_ITS | Clinical Summary ---
Author Organization [employer] Address [address] [facility] [address] [place] [address] Care Team Providers Care Construction Analyst Name Role Phone Unavailable Primary Care Provider [...]
--- OUTSIDE RECORDS SUMMARY | 2024-10-15 14:21 | XMS_ITS | Clinical Summary ---
Author Organization [facility] Address [address] [place] [address] Care Team Providers Care Staff Development Nurse Name Role Phone Jose Grijalva PA-C Primary [...] 12/03/2020 12/04/2019, 12/04/2019 Hypertension Screening (#1) 04/15/2023 [id number] ( - season) 2024 021, 02/01/2021 Imm-Influenza [...] GEN) (04/15/2022 2:18 PM EDT) Pathologist [facility] HIV AG/AB, 4TH GEN NON-REAC TIVE NON-REAC TIVE [employer] [facility] Comment: HIV-1 antigen and HIV-1/HIV-2 antibodies [...] ?? For additional information please refer to http://education.PastBook/faq/FWT918 (This link is being provided for informational/ educational purposes only.) The performance of this assay has not been clinically validated in patients less than 2 years old. Blood Blood / Unknown 04/15/2022 2 :18 PM EDT 04/15/2022 2:19 PM EDT Deborah Galvez [facility] LAB - BLOOD DRAW Final Re sult [facility] [address] [address], [facility] [address] [address] * HEPATITIS A,B,C PANEL (12/04/2019 2:57 PM EDT) HEPATITIS B SURFACE ANTIBODY NEGATIVE NEGATIVE [facility] HEPATITIS B SURFACE ANTIGEN NEGATIVE NEGATIVE [facility] Comment: Over the counter supplements containing high doses of biotin may interfere with this assay. ??If interference is suspected, patients shoud be retested after refraining from biotin supplements for 72 hours. HEPATITIS C VIRUS DIAGNOSTIC NEGATIVE NEGATIVE [facility] HEPATITIS B CORE ANTIBODY NEGATIVE NEGATIVE [facility] HEPATITIS A ANTIBODY TOTAL NEGATIVE NEGATIVE [facility] Comment: Over the counter supplements containing high doses of biotin may interfere with this assay. ??If interference is suspected, patients shoud be retested after refraining from biotin supplements for 72 hours. Blood specimen (specimen) Blood / Unknown 12/04/2019 2:57 PM EDT 12/04/2019 3:51 PM EDT [facility] 12/04/2019 6:32 PM EDT [employer], a member of [address] [address] Sample Maker Hand - Jossie Beverly MD PT ID [id number] ORD# [id number] Fior Singh PA-C LAB - BLOOD DRAW Edited Result - Final Performing Organization Address City/[facility]/ZIP Co de Phone Number [facility] [employer] [address], [place] [phone] * HEMOGLOBIN, GLYCOSYLATED (A1C) (12/04/2019 2:57 PM EDT) GLYCATED HEMOGLOBIN A1C 5.9 <6.5 % [facility] ESTIMATED AVERAGE GLUCOSE 123 mg/dL [facility] Blood specimen (specimen) Blood / Unknown 12/04/2019 2:57 PM EDT 12/04/2019 3:51 PM EDT [facility] 12/04/2019 7:54 PM EDT [employer], a member of [address] [address] Sample Maker Hand - Jossie Beverly MD PT ID [id number] ORD# [id number] Fior Singh PA-C LAB - BLOOD DRAW Final Result Performing Organization Address City/[facility]/ZIP Co de Phone Number [address] [address], [place] [phone] from Last 3 Months or Most Recently Relevant to Health Maintenance Insurance [place] [facility] PLAN Member Subscriber Plan / Payer (Ef fective 2023-Present) Name:Harjeet Abraham Relation to Subscriber:Self Name:Harjeet Abraham Payer ID:[id number] Group ID:[id number] Type:Medicaid Address: [address] [address] Care Teams Staff Development Nurse Relationship Specialty Start Date End Date Jose Grijalva PA-C [address] [place] [address] PCP - General 12/11/21
[2024-10-16 10:28] LABS: Follicle Stimulating Hormone 2.7 mIU/mL; Prolactin 8.5 ng/mL
[2024-10-27 04:32] LABS: Estradiol Ultra Sensitive 124 pg/mL
== END 2024-10-15 12:28 | disposition home or self-care (01) ==
LOC: HO.LAB 12:27
DX: Z00.00 Encounter for general adult medical examination without abnormal findings (principal); Z13.220 Encounter for screening for lipoid disorders; N91.2 Amenorrhea, unspecified; R79.89 Other specified abnormal findings of blood chemistry
CPT/HCPCS: 36415; 80053; 80061; 81025; 82306; 82607; 82670; 82746; 83001; 84146; 84439; 84443

== ENCOUNTER 2024-11-05 12:36 | Outpatient (REF) | payer OTHER, SELFPAY ==
--- OUTSIDE RECORDS SUMMARY | 2024-11-05 14:06 | XMS_ITS | Clinical Summary ---
Author Organization [employer] Address [address] [place] [address] Care Team Providers Care Print Buyer Name Role Phone Unavailable Primary Care Provider [...]
--- OUTSIDE RECORDS SUMMARY | 2024-11-05 14:06 | XMS_ITS | Clinical Summary ---
Author Organization [facility] Address [address] [place] [address] Care Team Providers Care Guideman Name Role Phone Jose Grijalva PA-C Primary [...] Administration Dates Next Due HEP A-HEP B (T[facility]X) 03/05/2020 HPV 9 (Gardasil) 12/04/2019 HPV, QUADRIVALENT [...] 8:38 AM PDT Sexual Orientation Bisexual 01/17/2023 8 :38 AM PDT Last Filed Vital Signs Vital [...] 12/03/2020 12/04/2019, 12/04/2019 Hypertension Screening (#1) 04/15/2023 [id number] ( season) 2024 021, 02/01/2021 Imm-Influenza (#1) 2024 [...] W/RFLX (4TH GEN) (04/15/2022 2:18 PM EDT) HIV AG/AB, 4TH GEN NON-REAC TIVE NON-REAC TIVE [facility] Comment: HIV-1 antigen and HIV-1/HIV-2 antibodies [...] ?? For additional information please refer to http://education.CertiRx/faq/VUI614 (This link is being provided for informational/ educational purposes only.) The performance of this assay has not been clinically validated in patients less than 2 years old. Blood Blood / Unknown 04/15/2022 2 :18 PM EDT 04/15/2022 2:[address] [facility] LAB - BLOOD DRAW Final Re sult [employer] [address] [address], [employer] [facility] [address] [address] * HEPATITIS A,B,C PANEL (12/04/2019 2:57 PM EDT) HEPATITIS B SURFACE ANTIBODY NEGATIVE NEGATIVE [facility] HEPATITIS B SURFACE ANTIGEN NEGATIVE NEGATIVE [facility] Comment: Over the counter supplements containing high doses of biotin may interfere with this assay. ??If interference is suspected, patients shoud be retested after refraining from biotin supplements for 72 hours. HEPATITIS C VIRUS DIAGNOSTIC NEGATIVE NEGATIVE [facility] HEPATITIS B CORE ANTIBODY NEGATIVE NEGATIVE [facility] HEPATITIS A ANTIBODY TOTAL NEGATIVE NEGATIVE [facility] Comment: Over the counter supplements containing high doses of biotin may interfere with this assay. ??If interference is suspected, patients shoud be retested after refraining from biotin supplements for 72 hours. Blood specimen (specimen) Blood / Unknown 12/04/2019 2:57 PM EDT 12/04/2019 3:51 PM EDT Hannah [facility] - 12/04/2019 6:32 PM EDT [employer], a member of [address] [address] Television Maintenance Worker - Jossie Beverly MD PT ID [id number] ORD# [id number] Fior Singh PA-C LAB - BLOOD DRAW Edited Result - Final Performing Organization Address [facility]/ZIP Co de Phone Number [address] [address], [place] [phone] * HEMOGLOBIN, GLYCOSYLATED (A1C) (12/04/2019 2:57 PM EDT) GLYCATED HEMOGLOBIN A1C 5.9 <6.5 % [facility] ESTIMATED AVERAGE GLUCOSE 123 mg/dL [facility] Blood specimen (specimen) Blood / Unknown 12/04/2019 2:57 PM EDT 12/04/2019 3:51 PM EDT Hannah [facility] - 12/04/2019 7:54 PM EDT [employer], a member of [address] [address] Television Maintenance Worker - Jossie Beverly MD PT ID [id number] ORD# [id number] Fior Singh PA-C LAB - BLOOD DRAW Final Result Performing Organization Address [facility]/ZIP Co de Phone Number [facility] [employer] [address], [place] [phone] from Last 3 Months or Most Recently Relevant to Health Maintenance Insurance [place] [facility] PLAN Member Subscriber Plan / Payer (Ef fective 2023-Present) Name:Harjeet Abraham Relation to Subscriber:Self Name:Harjeet Abraham Payer ID:[id number] Group ID:[id number] Type:Medicaid Address: [id number] [place] [address] Care Teams Guideman Relationship Specialty Start Date End Date Jose Grijalva PA-C [address] [place] [address] PCP - General 12/11/21
[2024-11-05 14:08] LABS: Appearance Urine Clear; Color Urine Yellow; Glucose Urine UA Negative (Negative); Leukocyte Esterase Urine Moderate (2+) (Negative); Nitrite Urine Negative (Negative); Specific Gravity - Urine 1.015 (1.005-1.025); UMIC TRIGGER UACC YES; Urine Blood Small (1+) (Negative); Urine Ketones Negative (Negative); Urine Protein Negative (Neg-Trace)
[2024-11-05 14:19] LABS: Bacteria Urine None Seen (None Seen); Hyaline Casts Urine 0-2 /LPF (0-2); RBC Urine 0-2 /HPF (0-2); UACC Culture Trigger YES; WBC Urine 0-5 /HPF (0-5)
== END 2024-11-05 12:37 | disposition home or self-care (01) ==
LOC: HO.LAB 12:36
DX: R82.90 Unspecified abnormal findings in urine (principal)
CPT/HCPCS: 81001; 81003; 87086

== ENCOUNTER 2025-03-25 12:08 | Outpatient (REF) | payer OTHER, SELFPAY ==
[2025-03-25 13:06] LABS: Appearance Urine Clear; Glucose Urine UA Negative (Negative); PH 5.5 (5.0-9.0); Specific Gravity - Urine 1.015 (1.005-1.025)
[2025-03-25 14:10] LABS: Thyroid Stimulating Hormone 1.70 uIU/mL (0.32-4.0)
[2025-03-26 10:18] LABS: Follicle Stimulating Hormone 1.4 mIU/mL
[2025-03-26 13:08] LABS: Syphilis Screen Nonreactive (Nonreactive)
[2025-03-26 13:58] LABS: HBS Num1 11.98 mIU/mL (0-7.99); HBc Num1 0.08 S/CO (0.00-0.79); HBsAGNum1 0.35 S/CO (0.00-0.99); HIV Num 1 0.05 S/CO (0.00-0.99); Hepatitis B Surface Antigen Negative (Negative); ~HepC Num1 0.13 S/CO (0.00-0.79); ~Hepatitis C Antibody Nonreactive (Nonreactive)
[2025-03-27 10:15] LABS: HBS Num2 10.82 mIU/mL (0-7.99); HBS Num3 11.47 mIU/mL (0-7.99); ~Hepatitis B Surface Antibody GRAYZONE (Nonreactive)
[2025-03-31 07:48] LABS: Estradiol Ultra Sensitive 153 pg/mL
[2025-04-07 17:17] LABS: Testosterone, Free 3.0 pg/mL (0.1-6.4)
== END 2025-03-25 12:09 | disposition home or self-care (01) ==
LOC: HO.LAB 12:08
PROVIDERS: Advanced Practice Midwife
DX: Z11.3 Encounter for screening for infections with a predominantly sexual mode of transmission (principal); Z11.4 Encounter for screening for human immunodeficiency virus [HIV]; Z11.59 Encounter for screening for other viral diseases; N89.8 Other specified noninflammatory disorders of vagina; R79.89 Other specified abnormal findings of blood chemistry; N91.2 Amenorrhea, unspecified; R35.89 Other polyuria
CPT/HCPCS: 36415; 81003; 82670; 83001; 83498; 84146; 84402; 84403; 84443; 86704; 86706; 86780; 86803; 87340; 87389